=== PATIENT | male | born 1950 | race Caucasian/White ===

== ENCOUNTER 2019-12-01 22:22 | Inpatient (IN) | payer MEDICARE, OTHER ==
[~2019-12-01 22:22] MED LIST: Magnesium 5 GM/10 ML Abboject SYRINGE ONE
[2019-12-01 23:05] LABS: #Basophils 0.1 thou/uL (0.0-0.2); #Eosinphils 0.1 thou/uL (0.0-0.7); #Monocytes 0.6 thou/uL (0.11-0.59); #Neutrophils 4.8 thou/uL (1.40-6.50); %Basophils 0.8 % (0.0-1.0); %Eosinophils 0.8 % (0.0-10.0); %Monocytes 7.6 % (0.0-10.0); %Neutrophils 63.8 % (42.0-75.0); Hemoglobin 13.5 g/dL (14.0-18.0); Mean Corpuscular HGB CONC 33.3 g/dL (32.0-36.0); Mean Corpuscular Hemoglobin 31.1 pg (27.0-31.0); Mean Corpuscular Volume 93.5 fL (78.0-98.0); Mean Platelet Volume 8.5 fL (7.4-10.4); Platelet Count 178 thou/uL (130-400); RBC Distribution Width 13.3 % (11.5-14.5); Red Blood Cell (RBC) Count 4.33 mill/uL (4.70-6.10); White Blood Cell (WBC) Count 7.6 thou/uL (4.8-10.8)
[2019-12-01 23:26] LABS: ALT (SGPT) 16 U/L (8-55); AST (SGOT) 21 U/L (5-34); Albumin 4.3 g/dL (3.4-4.8); Alkaline Phosphatase 48 U/L (40-110); Anion Gap 15 mmol/L (10-20); BUN (Urea Nitrogen) 58 mg/dL (8.4-25.7); Bilirubin, Total 0.6 mg/dL (0.2-1.2); Calc. Creatinine Clearance 0 mL/min (70-130); Calcium 9.2 mg/dL (7.8-10.44); Carbon Dioxide 22 mmol/L (23-31); Chloride 101 mmol/L (98-107); Estimated GFR-MDRD 48; Globulin 2.9 g/dL (2.4-3.5); Glucose 119 mg/dL (80-115); Potassium 3.8 mmol/L (3.5-5.1); Protein, Total 7.2 g/dL (5.8-8.1); Sodium 134 mmol/L (136-145)
[2019-12-01 23:49] LABS: CKMB 6.3 ng/mL (0-6.6)
[2019-12-01] MEDS ORDERED: Aspirin 325 MG TAB ONE (23:53)
--- NOTE | 2019-12-02 00:26 | RAD ---
RADIOGRAPH CHEST 1 VIEW: DATE: 12/01/2019 10:39 PM HISTORY: 68-year-old male with chest pain FINDINGS: The thoracic aorta is tortuous and ectatic. There is no evidence of airspace density, cardiomegaly, p ulmonary edema, or pneumothorax. The lateral costophrenic angles are not effaced. IMPRESSION: 1) No acute cardiopulmonary findings. 2) ectasia of thoracic aorta.
--- NOTE | 2019-12-02 00:44 | PDOC.EVN ---
Event Note - Event Note Event Note: [id number] dictated
[2019-12-02 01:20] LABS: Troponin I 0.034 ng/mL (< 0.028)
[2019-12-02 01:54] VITALS: BMI 25.9
[2019-12-02] MEDS ORDERED: Enoxaparin Sodium 100 MG/ML SYRINGE SC SCH (02:00)
--- NOTE | 2019-12-02 02:27 | HP ---
CHIEF COMPLAINT: Chest tightness and shortness of breath. HISTORY OF PRESENT ILLNESS: Mr. Hernandez is a 68-year-old male with past medical history of coronary artery disease with cardiac stents, aortic aneurysm, hypertension, peripheral vascular disease, among others, presents to the emergency room with sudden onset of chest tightness that started while walking in a store today. He said that he felt tightness in his chest, associated with shortness of breath. Denies fever, cough, syncope, or dizziness. In the emergency room, the patient was chest pain free. Initial troponin is indeterminate at 0.053. Given his risk factors and prior cardiac history, the patient is being admitted to hospital for further management. PAST MEDICAL HISTORY: 1. Abdominal aortic aneurysm, stent in 2017. 2. Coronary artery disease with cardiac stent. 3. Ruptured colon polyps, sepsis. 4. Hypertension. 5. Peripheral vascular disease. PAST SURGICAL HISTORY: 1. Cardiac stents. 2. Abdominal aortic aneurysm surgery. 3. Colon polyps. 4. Left foot partial amputation. 5. Right wrist surgery. SOCIAL HISTORY: He is a former smoker. Denies alcohol drinking. FAMILY HISTORY: Reviewed and noncontributory. HOME MEDICATIONS: Please see home medication reconciliation form for updated medications. ALLERGIES: ALLERGIC TO LISINOPRIL, ZETIA, THIMEROSAL. REVIEW OF SYSTEMS: Review of 14 systems negative except what is mentioned in history of present illness. PHYSICAL EXAMINATION: GENERAL: The patient is awake, alert, does not appear to be in acute distress. VITAL SIGNS: Blood pressure 114/69, pulse is 84, respiratory rate is 16, oxygen saturation 96% in room air, temperature 98.7. HEAD AND NECK: Normocephalic and atraumatic. NECK: Supple. No JVD. CHEST: Fair bilateral air entry. HEART: S1, S2. Regular. ABDOMEN: Soft, nontender. Bowel sounds present. NEUROLOGIC: Awake, alert, oriented x3. PSYCH: Normal mood. EXTREMITIES: No clubbing, no cyanosis. Left midfoot amputation. GENITOURINARY: No suprapubic tenderness. No flank tenderness. LABORATORY DATA: Troponin 0.053. Sodium 134, potassium is 5.8, creatinine 1.4. WBC 7.6, hemoglobin 13.5, platelets 178. ASSESSMENT: 1. Acute chest pain, rule out acute coronary syndrome. 2. Elevated/indeterminate troponin? acute coronary syndrome. 3. History of coronary artery disease with stents. 4. Abdominal aortic aneurysm with history of surgery/stents. 5. Peripheral vascular disease. 6. Hypertension. 7. Hyperlipidemia. PLAN: 1. Admit. 2. Telemonitor. 3. Aspirin. 4. We will give the patient one dose of Lovenox, reassess in a.m. 5. Serial troponins. 6. Keep the patient n.p.o. for now and reassess in a.m. 7. Consult Cardiology in a.m. for evaluation and further recommendations. 8. Reconcile home medications. 9. DVT prophylaxis as appropriate. 10. Expected length of stay at least 1 midnight if patient is stable and further workup negative. Job ID: [id number]
[2019-12-02] MEDS ORDERED: Sodium Chloride 0.9% (PF) 10 ML VIAL FS PRN (05:13)
--- NOTE | 2019-12-02 05:13 | PDOC.EVN ---
Event Note - Event Note Event Note: RN called, patient has black stool. hold lovenox and aspirin check CBC start IV pantoprazole, IVFs
[2019-12-02] MEDS ORDERED: Pantoprazole 40 MG VIAL IVP SCH (05:15)
[2019-12-02 05:34] LABS: Troponin I 0.039 ng/mL (< 0.028)
--- NOTE | 2019-12-02 05:41 | PRG ---
DATE OF SERVICE: 12/02/2019 Received a call from RN. The patient mentioned that he is passing black/dark stool. Denies abdominal pain. We will hold Lovenox and aspirin. We will get a stat CBC. Start the patient on IV proton pump inhibitor. Consult storehouse clerk. Job ID: [id number]
[2019-12-02] MEDS: Sodium Chloride 0.9% 1,000 ML IV SCH ×2 (05:42→16:48)
[2019-12-02] MEDS: Pantoprazole 80 MG in Sodium Chloride 0.9% 100 ML IVPB SCH (05:56)
[2019-12-02 05:58] LABS: #Basophils 0.1 thou/uL (0.0-0.2); #Lymphocytes 2.1 thou/uL (1.20-3.40); #Monocytes 0.6 thou/uL (0.11-0.59); #Neutrophils 4.8 thou/uL (1.40-6.50); %Basophils 0.8 % (0.0-1.0); %Eosinophils 0.4 % (0.0-10.0); %Lymphocytes 27.4 % (21.0-51.0); %Monocytes 8.3 % (0.0-10.0); %Neutrophils 63.2 % (42.0-75.0); Hemoglobin 10.6 g/dL (14.0-18.0); Mean Corpuscular HGB CONC 32.8 g/dL (32.0-36.0); Mean Corpuscular Hemoglobin 30.7 pg (27.0-31.0); Mean Corpuscular Volume 93.5 fL (78.0-98.0); Mean Platelet Volume 8.8 fL (7.4-10.4); Platelet Count 175 thou/uL (130-400); RBC Distribution Width 13.5 % (11.5-14.5); Red Blood Cell (RBC) Count 3.47 mill/uL (4.70-6.10); White Blood Cell (WBC) Count 7.5 thou/uL (4.8-10.8)
[2019-12-02] MEDS ORDERED: Aspirin 325 mg Enteric Coated Tablet PO SCH (09:00)
--- NOTE | 2019-12-02 09:27 | PDOC.BPN ---
- Brief Progress Note I was notified by the nursing staff that the patient had a large bloody bowel movement and subsequently hypotensive with systolic blood pressure less than 70. Upon my assessment, the patient was in Trendelenburg position, alert and oriented, and complaining of dry mouth and thirst. The patient stated that he has been experiencing black stools over the past 2 weeks and was taking Aleve for shoulder pain. The patient does have history of peptic ulcer disease. He received a dose of therapeutic Lovenox in the ER for suspected ACS. This has likely triggered an active episode of bleeding. The patient's blood pressure improved after stopping a bolus of IV fluids. I have discussed the case with Dr. David Cavazos who intends to scope the patient today to identify source of bleeding. Continue IV Protonix drip.
[2019-12-02] MEDS ORDERED: Sodium Chloride 0.9% 1,000 ML IV SCH (09:30)
--- NOTE | 2019-12-02 13:05 | CON ---
DATE OF CONSULTATION: REASON FOR CONSULTATION: Atypical chest pain. HISTORY OF PRESENT ILLNESS: Mr. Hernandez is a 68-year-old gentleman with extensive cardiac history, who has not been seen or evaluated by Cardiology in almost 10 years. He states he has had stents placed at [facility] in [place] in 2010. He also states he had an aortic aneurysm repair in 2017. He re-presented with shortness of breath and atypical chest pain. No nausea, vomiting, or other associated symptoms. He has had black dark tarry stools. He also had a sharp drop in his hemoglobin from 13 to 10 with a melena present. He did have a short run of nonsustained VT noted on the monitor. He is currently asymptomatic. PAST MEDICAL HISTORY: As described above including hypertension, previous ruptured colon polyp and sepsis requiring a prolonged hospitalization, abdominal aneurysm repair in 2017, partial left foot amputation, wrist surgery. SOCIAL HISTORY: Previous tobacco use. No current alcohol use. HOME MEDICATIONS: Include; 1. Tadalafil. 2. Gemfibrozil. 3. Aspirin. 4. Thyroid. 5. Sertraline. 6. Metoprolol. 7. Lasix. REVIEW OF SYSTEMS: A 10-point review of systems is reviewed as above, otherwise negative. PHYSICAL EXAMINATION: GENERAL: Patient is a pleasant male, who is in no acute distress. The patient appears their stated age. VITAL SIGNS: Blood pressure 105/65, pulse 82, respirations 20. NEUROLOGIC: The patient is alert and oriented x3 with no focal neurologic deficits. HEENT: Sclerae without icterus. Mouth has moist mucous membranes with normal pallor. NECK: No JVD. Carotid upstroke brisk. No bruits bilaterally. LUNGS: Clear to auscultation with unlabored respirations. BACK: No scoliosis or kyphosis. CARDIAC: Regular rate and rhythm with normal S1 and S2. No S3 or S4 noted. No significant rubs, murmurs, thrills, or gallops noted throughout the precordium. PMI is not displaced. There is no parasternal heave. ABDOMEN: Soft, nontender, nondistended. No peritoneal signs present. No hepatosplenomegaly. No abnormal striae. EXTREMITIES: 2+ femoral and 2+ dorsalis pedis pulses. No cyanosis, clubbing, or edema. SKIN: No gross abnormalities. PERTINENT LABORATORY DATA: As above. Creatinine 1.48 with a GFR of 48. Peak troponin 0.053. IMPRESSION: 1. Atypical chest pain. 2. Shortness of breath. 3. Gastrointestinal bleed. 4. Peripheral vascular disease. 5. Coronary artery disease. 6. Status post stent placement. RECOMMENDATIONS: CV status appears stable. His troponin is not felt to be elevated, consistent with a non-Q-wave NH. If anything, he has had demand ischemia. Thus, we will continue close observation. Avoid anticoagulation therapy or anti-platelet therapy, given recent GI bleed. We will check a magnesium level due to short run of nonsustained VT. If LVEF is normal, continue beta-ghassan therapy. Job ID: [id number]
[2019-12-02 13:50] LABS: Hemoglobin 9.7 g/dL (14.0-18.0)
--- NOTE | 2019-12-02 14:52 | CON ---
DATE OF CONSULTATION: 12/02/2019 REQUESTING PHYSICIAN: Dr. Randall. REASON FOR CONSULTATION: GI bleeding. HISTORY OF PRESENT ILLNESS: Kenny Hernandez is a 68-year-old man, who was admitted to the hospital overnight. He had the acute onset of chest pain and tightness as well as shortness of breath yesterday. He was admitted to rule out acute coronary syndrome. He was given a dose of therapeutic Lovenox as well as 325 mg of aspirin. Overnight, he developed melena with a couple of large black bowel movements, then also with a reddish coloration to the stool. This morning, his blood pressures dropped into the 60s systolic briefly. He has been started on an IV PPI drip and is being transferred to the intensive care unit. He does not have any presyncope or dizziness. No fever. He has no abdominal pain or nausea. He endorses no chronic gastrointestinal symptoms, but on questioning, states that for perhaps the past couple of weeks he has had intermittently dark stools, intermittently normal-appearing brown stools. He is not on any acid suppression. He does take Aleve occasionally for shoulder pain. He reports a prior history of peptic ulcer disease probably 10 years ago for which he was on acid suppression for a while, was taken off several years ago. Interestingly, he also reports a prior history of "colon polyp rupture and sepsis" back in 2017. He evidently was quite ill and had to undergo colon surgery with colostomy bag, which was subsequently reversed. This was all done at [facility]. He really cannot give me any more details about what caused that presentation, all he can remember is that it was "ruptured colon polyps." REVIEW OF SYSTEMS: Full review of systems including constitutional, head, eyes, ears, nose, throat, GI, , cardiovascular, respiratory, musculoskeletal, neurologic systems is negative except as noted in the HPI. PAST MEDICAL HISTORY: Peptic ulcer disease, 10 years ago. Abdominal aortic aneurysm with stent placed in 2017, coronary artery disease with stent placed, renal artery stenosis with stent placed, hypertension, peripheral vascular disease, colon polyps, left partial foot amputation, colon surgery for unknown reasons with colostomy 2017, subsequently reversed. ALLERGIES: LISINOPRIL, ZETIA, THIMEROSAL. MEDICATIONS: Outpatient medications: 1. Aspirin 81 mg daily. 2. Zoloft. 3. Metoprolol. 4. Lasix. 5. Tadalafil. 6. Gemfibrozil. 7. [place] Thyroid. Inpatient medications: Protonix IV drip started this morning. SOCIAL HISTORY: He is a former smoker. No alcohol abuse. FAMILY HISTORY: Noncontributory. PHYSICAL EXAMINATION: VITAL SIGNS: Temperature 97.8, pulse 83, blood pressure 106/58, 99% oxygen saturation on room air. GENERAL: A 68-year-old man, lying in bed comfortably, in no distress. SKIN: No jaundice, no rashes were palpable. EYES: No scleral icterus. Extraocular movements intact. ENT: Mucous membranes moist. No oral lesions. LYMPH: No submandibular or supraclavicular lymphadenopathy. THYROID: Nontender to palpation. HEART: Regular rate and rhythm. LUNGS: Clear to auscultation bilaterally. ABDOMEN: Bowel sounds present. The abdomen is flat, soft and nontender to palpation. He has a vertical midline scar as well as a left-sided colostomy scar which are well healed. EXTREMITIES: No peripheral edema. VESSELS: Radial pulses 2+ bilaterally NEUROLOGIC: Cranial nerves 2 through 12 intact bilaterally. No focal deficits. LABORATORY DATA: Hemoglobin initially 13.5, declined rapidly to 10.6 this morning. WBC 7.5, platelets 175. Sodium 134, potassium 3.8, BUN 58, creatinine 1.48. Troponin 0.039, CK-MB only 6.3. LFTs all normal with total bilirubin 0.6, alkaline phosphatase 48, AST 21, ALT 16, albumin 4.3. IMAGING STUDIES: Chest x-ray showed ectasia of the thoracic aorta, but no acute processes. ASSESSMENT AND PLAN: 1. Melena, intermittent over the past couple of weeks, with worsening last night after dose of Lovenox. 2. Acute blood loss anemia, significant decline from 13.5 to 10.6 overnight. 3. Remote history of peptic ulcer disease. Of note, the patient does take Aleve occasionally and is not on any acid suppression. 4. History of colon surgery for unclear reasons in 2017. We will need to request records from [facility] to try to get the details on this. 5. The patient has been started on IV PPI and being moved to the ICU appropriately. Continue with resuscitation and supportive measures as you are doing. Trend H and H closely. Transfuse as needed. We are going to plan for diagnostic EGD today. I discussed with the patient and his that depending on findings, we may perform therapeutic interventions. If the EGD is normal or unrevealing, we would need to consider bowel preparation tonight for colonoscopy tomorrow. The patient understands and agrees with the plan. Thank you for the consultation. Please call anytime with questions or concerns. Job ID: [id number]
[2019-12-02] MEDS ORDERED: Calcium Chloride 1 GM/10 ML Abboject SYRINGE ONE (15:21)
[2019-12-02] MEDS ORDERED: Succinylcholine Chloride 20 MG/ML 10 ml SYRINGE FS ONE (15:21)
[2019-12-02] MEDS ORDERED: PROPOFOL 200 MG/20 ML VIAL ONE (15:21)
[2019-12-02] MEDS ORDERED: Lidocaine 1% PF 5 ML VIAL ONE (15:21)
[2019-12-02] MEDS ORDERED: GoLYTELY 4,000 ml Bottle PO SCH (16:53)
[2019-12-02] MEDS ORDERED: Cepastat Lozenges 1 LOZ PO PRN (20:33)
--- NOTE | 2019-12-02 20:38 | OP ---
DATE OF PROCEDURE: 12/02/2019 COMMUNICATIONS DESIGNER SURGEON: None. PROCEDURE PERFORMED: Esophagogastroduodenoscopy, diagnostic. INDICATIONS: 1. Melena. 2. Acute blood loss anemia. 3. Reported prior history of peptic ulcer disease. MEDICATIONS: See Anesthesia record. FINDINGS: After discussion of the risks, benefits, and alternatives of the procedure, informed consent was obtained and witnessed. Pre-endoscopic cardiopulmonary examination was satisfactory. Time-out was performed before sedation was achieved. Sedation was achieved with Anesthesia assistance in the endoscopy unit. A Pentax adult upper endoscope was placed into the oropharynx and passed through the cricopharyngeus under direct visualization. The esophageal mucosa appeared normal throughout with a normal-appearing Z-line. The endoscope was advanced into the stomach. Forward and retroflexed views of the entire gastric mucosa were obtained. There is some patchy mild erythema and mild friability within the gastric fundus and body, but there were no erosions or ulcerations. There was no old blood or active bleeding in the stomach. No bleeding lesion identified. The endoscope was passed through the pylorus and into the first and second portions of the duodenum and then passed further into the third and fourth portions of the duodenum. The duodenum mucosa appeared normal. The upper endoscope was completely withdrawn and the patient allowed to recover. The patient tolerated the procedure well. There were no immediate postprocedure complications. IMPRESSION: 1. Mild patchy nonerosive gastritis. 2. No old blood or active bleeding, no bleeding lesion identified, nothing to explain the patient's bleeding presentation. 3. Otherwise normal esophagogastroduodenoscopy to the fourth portion of the duodenum. RECOMMENDATION: 1. Transfuse 1 unit of packed red blood cells now. 2. Continue to trend H and H, follow closely. 3. Plan for diagnostic colonoscopy tomorrow, after bowel preparation this evening. Job ID: [id number]
[2019-12-02] MEDS: HYDROcodone/Acetaminophen 5/325 mg Tablet PO PRN (22:18)
[2019-12-03] MEDS ORDERED: Morphine 2 MG/ML SYRINGE SLOW IVP SCH (00:15)
[2019-12-03] MEDS: HYDROcodone/Acetaminophen 5/325 mg Tablet PO PRN (02:26)
[2019-12-03] MEDS: Pantoprazole 80 MG in Sodium Chloride 0.9% 100 ML IVPB SCH ×3 (02:27→21:47)
[2019-12-03] MEDS: Sodium Chloride 0.9% 1,000 ML IV SCH (02:28)
[2019-12-03 05:12] LABS: #Basophils 0.1 thou/uL (0.0-0.2); #Lymphocytes 5.3 thou/uL (1.20-3.40); #Monocytes 1.2 thou/uL (0.11-0.59); #Neutrophils 10.1 thou/uL (1.40-6.50); %Basophils 0.4 % (0.0-1.0); %Eosinophils 0.1 % (0.0-10.0); %Monocytes 7.1 % (0.0-10.0); %Neutrophils 60.4 % (42.0-75.0); Hemoglobin 7.2 g/dL (14.0-18.0); Mean Corpuscular HGB CONC 32.1 g/dL (32.0-36.0); Mean Corpuscular Hemoglobin 30.3 pg (27.0-31.0); Mean Corpuscular Volume 94.2 fL (78.0-98.0); Platelet Count 172 thou/uL (130-400); RBC Distribution Width 13.6 % (11.5-14.5); Red Blood Cell (RBC) Count 2.37 mill/uL (4.70-6.10); White Blood Cell (WBC) Count 16.7 thou/uL (4.8-10.8)
--- NOTE | 2019-12-03 05:19 | PDOC.BPN ---
- Brief Progress Note Code blue called. Prior to my arrival patient had just had a bloody bowel movement. He subsequently arrested and was noted to have TdP. He was defibrillated and given 1 dose of epi and subsequently regained consciousness/pulse. When I arrived he was breathing spontaneously, satting 100%, with reassuring BP p epi and HR in the 180s. The patient was diaphoretic and complained of chest pain. 2g Mg was given. Anesthesia arrived and subsequently left since a requirement for intubation at the time did not seem necessary. An ECG was obtained and revealed a HR of [address] depression and indeterminate presence of T waves, QTC>500. A CBC, CMP, mg/phos/Tn were sent. I discussed with Dr. Vega who agrees that a blood transfusion reaction was unlikely and the patient is likely hypovolemic. Restart PRBCs, bolus PRN. TdP in setting of hemorrhagic+/-shock 2/2 GI bleed with ? new NSTEMI with STD. I handed off to Dr. Vega in this non-PUI/COVID patient. Any notification of specialists per primary.
[2019-12-03 05:28] LABS: ALT (SGPT) 14 U/L (8-55); AST (SGOT) 21 U/L (5-34); Albumin 3.5 g/dL (3.4-4.8); Alkaline Phosphatase 35 U/L (40-110); Anion Gap 16 mmol/L (10-20); BUN (Urea Nitrogen) 48 mg/dL (8.4-25.7); Bilirubin, Total 0.3 mg/dL (0.2-1.2); Calc. Creatinine Clearance 61 mL/min (70-130); Calcium 7.9 mg/dL (7.8-10.44); Carbon Dioxide 17 mmol/L (23-31); Chloride 108 mmol/L (98-107); Estimated GFR-MDRD 45; Glucose 191 mg/dL (80-115); Magnesium 2.4 mg/dL (1.6-2.6); Protein, Total 5.5 g/dL (5.8-8.1); Sodium 138 mmol/L (136-145)
[2019-12-03 05:30] LABS: Potassium 2.6 mmol/L (3.5-5.1)
[2019-12-03] MEDS: Potassium Chloride 40 MEQ in Sodium Chloride 0.9% 250 ML 250 ML IVPB SCH ×2 (05:45→09:58)
[2019-12-03] MEDS ORDERED: Morphine 2 MG/ML SYRINGE SLOW IVP PRN (05:57)
[2019-12-03 06:10] LABS: CKMB 9.2 ng/mL (0-6.6)
--- NOTE | 2019-12-03 07:34 | PDOC.HOSPP ---
- Subjective Encounter Date: 12/03/19 Encounter Time: 07:30 Subjective: The patient continued to have excessive amounts of dark stools overnight after initiating the bowel prep. His hemoglobin decreased from 13 on admission progressively to 7.3. A code was called overnight and the patient was successfully resuscitated. The rhythm was reportedly ventricular arrhythmia. This morning the patient is alert and oriented and complaining of chest soreness at the site of the chest compressions. - Objective Vital Signs & Weight: Vital Signs (12 hours) Temp Pulse Resp Pulse Ox 12/03/19 06:45 97.9 F 115 H 12 100 12/03/19 05:06 100 12/03/19 05:00 97.8 F 100 12/03/19 04:29 99.5 F 12/03/19 04:13 98.5 F 12/03/19 03:42 97.8 F 12/02/19 23:35 99.2 F Weight Weight 207 lb 14.334 oz Most Recent Monitor Data Heart Rate from ECG 116 NIBP 130/77 NIBP BP-Mean 97 Respiration from ECG 10 SpO2 100 I&O: 12/02/19 12/03/19 12/04/19 06:59 06:59 06:59 Intake Total 6538.9 Output Total 2900 Balance 3638.9 Result Diagrams: 12/03/19 04:58 12/03/19 04:58 Hospitalist ROS - Medication Medications: Active Medications Generic Name Dose Route Start Last Admin Trade Name Freq PRN Reason Stop Dose Admin Hydrocodone Bitart/Acetaminophen 1 tab 12/02/19 21:57 12/03/19 02:26 [place] 5/325 PO 1 tab Q4H PRN Administration Moderate Pain (4-6) Sodium Chloride 1,000 mls @ 75 mls/hr 12/02/19 05:15 12/03/19 02:28 Normal Saline 0.9% IV 1,000 mls .[id number] NAZANIN Administration Pantoprazole Sodium 80 mg/ 100 mls @ 10 mls/hr 12/02/19 06:00 12/03/19 02:27 Sodium Chloride IVPB 100 mls INF NAZANIN Administration Potassium Chloride 40 meq/ 270 mls @ 67.5 mls/hr 12/03/19 06:00 12/03/19 05: 45 Sodium Chloride IVPB 12/03/19 13:59 270 mls Q4H NAZANIN Administration Morphine Sulfate 2 mg 12/03/19 05:57 12/03/19 06:02 Morphine SLOW IVP 2 mg Q8H PRN Administration Pain Sodium Chloride 10 ml 12/02/19 05:04 12/02/19 05:45 Flush - Normal Saline IVF 10 ml PRN PRN Administration Saline Flush Throat Lozenges 1 paco 12/02/19 20:33 12/02/19 21:14 Cepastat Lozenges PO 1 paco Q2H PRN Administration Sore Throat - Exam General Appearance: awake alert, ill appearing ENT: normocephalic atraumatic Neck: supple Heart - other findings: Regular tachycardia Respiratory: CTAB, normal chest expansion, no tachypnea Gastrointestinal: soft, non-tender, non-distended, normal bowel sounds Neurological: cranial nerve grossly intact Hosp A/P (1) Anemia due to acute blood loss Code(s): D62 - ACUTE POSTHEMORRHAGIC ANEMIA Status: Acute (2) Gastrointestinal bleeding Code(s): K92.2 - GASTROINTESTINAL HEMORRHAGE, UNSPECIFIED Status: Acute (3) Hypokalemia Code(s): E87.6 - HYPOKALEMIA Status: Acute (4) Cardiac arrest Code(s): I46.9 - CARDIAC ARREST, CAUSE UNSPECIFIED Status: Acute (5) Demand ischemia Code(s): I24.8 - OTHER FORMS OF ACUTE ISCHEMIC HEART DISEASE Status: Acute (6) GRACE (acute kidney injury) Code(s): N17.9 - ACUTE KIDNEY FAILURE, UNSPECIFIED Status: Acute - Plan Patient is currently being managed in the CCU. He is receiving the second out of 3 packed RBCs. His rhythm was reportedly torsade de poin during the code and he responded to defibrillation. EGD yesterday did not reveal any source of bleeding. Due to the active nature of the bleeding, I will order a stat bleeding scan. He is also scheduled for colonoscopy today. Replace potassium. Creatinine level slightly trending up which is likely due to shock related to bleeding and cardiac arrest. GI and cardiology on board. 40 min of critical care time was used to evaluate and manage this patient.
[2019-12-03 07:40] LABS: INR-International Normal Ratio 1.3; Prothrombin Time 15.9 sec (12.0-14.7)
[2019-12-03] MEDS ORDERED: Iopamidol 370 76% 100 ML VIAL ONE (09:22)
[2019-12-03] MEDS: Gabapentin 400 MG CAP PO SCH ×4 (09:34→21:47)
[2019-12-03] MEDS: Morphine 2 MG/ML SYRINGE SLOW IVP PRN (09:38)
--- NOTE | 2019-12-03 10:42 | PRG ---
DATE OF SERVICE: SUBJECTIVE: Mr. Hernandez completed his bowel preparation yesterday evening. Reports that the stools actually seemed to clear up blood with bowel preparation. However, this morning, he had an acute cardiac event, went into torsades, actually received epinephrine and one defibrillation shock as well as chest compressions. He did not have to be intubated. He quickly regained consciousness. He is now in sinus tachycardia. He has not had any further bowel movements or stool output today. Blood pressure is stable. His only complaint right now is fatigue and pain in the chest. Hemoglobin did decline dramatically from 9.7 yesterday to 7.2 this morning. He is receiving 2 more units of RBCs. He was also found to be hypokalemic with potassium down to 2.6, so he is receiving IV potassium replacement. OBJECTIVE: VITAL SIGNS: Temperature 98.0, pulse 112, blood pressure 109/63, 96% oxygen saturation on 2 L nasal cannula. GENERAL: In no acute distress. HEART: Regular, tachycardia. LUNGS: Clear to auscultation bilaterally. ABDOMEN: Bowel sounds present. Soft and nontender. EXTREMITIES: No peripheral edema. LABORATORY STUDIES: Hemoglobin down to 7.2, this is down from 9.7 yesterday, down from 13.5 on admission; WBC is up to 16.7; platelets 172. INR 1.3. Sodium 138, potassium 2.6, BUN 48, creatinine 1.56, and glucose 191. LFTs all remained normal with total bilirubin of 0.3, alkaline phosphatase of 35, AST of 21, and ALT of 14. CK-MB is up to 9.2. Troponin went up to 0.607. ASSESSMENT/PLAN: 1. Acute gastrointestinal bleeding, suspect lower gastrointestinal source given essentially negative EGD performed yesterday. 2. Acute blood loss anemia, severe. He is now receiving unit 3 of RBC transfusion today. Continue to trend H and H closely and transfuse as needed. He has actually not had much overt bloody stool output yet this morning. I have spoken with Dr. Berry as well as Dr. Randall. The patient is considered very high risk for any endoscopic procedure today given his recent code. Potassium is being replaced. It has been recommended that we not proceed with any endoscopic procedure today and I am in agreement. Continue to monitor today. We will go ahead and get a nuclear medicine tagged RBC scan in lieu of colonoscopy. The patient can have a clear liquid diet from my perspective. Please have him n.p.o. after midnight, and if okay from a cardiac perspective tomorrow morning, could potentially perform colonoscopy tomorrow. Please call anytime with questions or concerns or updates in his clinical status. Job ID: [id number]
[2019-12-03] MEDS: Morphine 4 MG/ML VIAL SLOW IVP PRN ×6 (11:29→23:41)
[2019-12-03] MEDS: fentaNYL 75 mcg/hour Patch TD SCH (11:33)
--- NOTE | 2019-12-03 12:33 | CON ---
DATE OF CONSULTATION: Total critical care time 35 minutes. Mr. Hernandez this morning had a code blue called. He developed torsade de pointes. He was cardioverted multiple occasions. He has not required intubation. He has now stabilized. His initial potassium was 2.6. Previous potassium was 3.8 on 12/01/2019. His creatinine is slightly elevated 1.56 with a GFR 45. His magnesium level is also 2.4. Currently, he is complaining of chest pain from a recent CPR. Otherwise, he appears stable. His hemoglobin also decreased from initially of 13.5 on 12/01/19 to 7.2 on 12/02. He has already received 2 units of packed red blood cells. PHYSICAL EXAMINATION: CURRENT VITAL SIGNS: Blood pressure 119/68, pulse 110, respirations 20. LUNGS: Clear to auscultation. HEART: Regular rate and rhythm. ABDOMEN: Soft, nontender, nondistended. EXTREMITIES: No edema. PERTINENT LABORATORY DATA: As described above. Initial troponin 0.6, up from 0.039. IMPRESSION: 1. Torsade de pointes. 2. Coronary artery disease. 3. Gastrointestinal bleed. RECOMMENDATIONS: Certainly very difficult managing situation for Mr. Hernandez. I reviewed his medications. There does not appear to be inciting medication that would cause torsades. He has not been bradycardic and would not be secondary to bradycardia. Etiology would be hypokalemia versus ischemia. At this point, he has been given 40 mg of potassium. He will get another 40 mg of potassium. We would like to keep his potassium level above 4.0. We will also give him another dose of magnesium 1 g IV. From an ischemic standpoint, could certainly proceed with coronary angiography, but at this point would not feel comfortable with treatment given the significant drop in hemoglobin despite 2 units of packed red blood cells. Also discussed the case with Dr. David Cavazos. We have decided to help stabilize Mr. Hernandez at this point and not proceed with colonoscopy. If colonoscopy is needed , would recommend waiting 24 hours for stabilization. Again, could consider proceeding with coronary angiography only, but could not proceed with stent implantation or even bypass surgery given not knowing the source of GI bleeding. Angiography with stent placement would require aspirin, Plavix in addition to heparin versus Lovenox versus Angiomax. I did discuss this with both the patient and his . They understand the circumstances. I did spend 35 minutes of critical care time at Mr. Hernandez's bedside. We will continue to monitor closely. ADDENDUM 12/03/2019 1635: Pt with sternal pain only. moderate pain to touch to right side of chest only. No anginal pain present. Troponin of 16. CKMB pending and EKG stable without EKG changes suggesting ischemia Difficult situation given likely pt bleeding and unknown if hew has stopped. Cannot proceed with anti-coagulation therapy given 3 unit bleed. Unsure if uincrease troponin from demand ischemia from recent event (ischemic driven or from low K). K level has stabilized. At this point, pt appears stable. EKG also stable without acute changes or ischemia changes present as he had during the code. REC: Increase BB and add amiodarone for rhythm stabilization. Given no angina and normal EKG, recommend observation for now. If recurrent VT, consider angio but intervention may not be feasible given bleeding event and need for heparin, ASA and plavix. Discussed at length with pt and earlier and with pt this afternoon. 12/03/[address] Cavazos, it appears the best course of action iis to proceed with angio. Unknown if torsades from acute ishcemia event or hypokalemia but given troponinand inability to proceed with coloscopy in am because of trop, will proceed to assess for ischemia. R/B of angio discussed with pt, and son seperately. Risks included not limited to: , stroke, MN, bleeding (main concern) requiring further transfusions. Will proceed with BMS if needed and use angiomax for ACT given the short half life. I am concerned about not being able to use ACT overnight and recurrent TP. Pt with intermittent VT noted through the day. Job ID: [id number] [facility]
[2019-12-03 12:41] VITALS: BP 108/66
[2019-12-03 13:26] LABS: Hemoglobin 10.7 g/dL (14.0-18.0)
--- NOTE | 2019-12-03 15:36 | CON ---
DATE OF CONSULTATION: 12/03/2019 HISTORY OF PRESENT ILLNESS: Kenny Hernandez is a 68-year-old male who had torsades. He actually presented with shortness of breath and chest discomfort. He subsequently was found to have a GI bleed. He had torsades and CPR earlier in the day. His only complaint is sternal pain from his CPR. PAST MEDICAL HISTORY: Remarkable for: 1. Hypertension. 2. History of colon polyp and clinical sepsis in the past. 3. History of abdominal aortic aneurysm repair 3 years ago. 4. History of partial left foot amputation. 5. History of wrist surgery. SOCIAL HISTORY: He is a previous smoker and nondrinker. MEDICATIONS: Has been reviewed. REVIEW OF SYSTEMS: Otherwise negative. PHYSICAL EXAMINATION: GENERAL: He is in sinus rhythm. Heart rate was 100, blood pressure was 98/65, respiratory rate is in the 20s. HEAD AND NECK: Unremarkable. LUNGS: Clear. HEART: Regular rhythm. S1 and S2 are normal. ABDOMEN: Soft and nontender. EXTREMITIES: Without clubbing, cyanosis, or edema. LABORATORY DATA: Hemoglobin was 7.2 this morning and has been transfused up to 10.7 and white count 16.7. His potassium was low this morning at 2.6, potassium is being replaced. IMPRESSION: 1. Torsades. 2. History of coronary artery disease. 3. Sternal pain secondary to cardiopulmonary resuscitation. I have added a fentanyl patch and morphine. 4. Gastrointestinal blood loss, being followed by Gastroenterology. Endoscopy is on hold. I see no reason at this point in time to send him down for bleeding scan. He would be down in nuclear medicine away from the ICU staff for a prolonged period of time, and given his events, I do not feel the risk is currently worth it. If he begins briskly bleeding, we can proceed more aggressively with airway support, endoscopy, etc., but at this point in time, we will proceed with supportive care until he stabilizes. CRITICAL CARE TIME: 30 minutes. Job ID: [id number] [facility]
[2019-12-03 15:51] LABS: Anion Gap 11 mmol/L (10-20); BUN (Urea Nitrogen) 28 mg/dL (8.4-25.7); Calc. Creatinine Clearance 78 mL/min (70-130); Calcium 7.6 mg/dL (7.8-10.44); Carbon Dioxide 22 mmol/L (23-31); Chloride 112 mmol/L (98-107); Estimated GFR-MDRD 58; Glucose 109 mg/dL (80-115); Magnesium 2.1 mg/dL (1.6-2.6); Potassium 4.2 mmol/L (3.5-5.1); Sodium 141 mmol/L (136-145); Troponin I 16.339 ng/mL (< 0.028)
[2019-12-03] MEDS ORDERED: Heparin 10,000 UNITS/1 ML VIAL ONE (17:06)
[2019-12-03] MEDS ORDERED: Nitroglycerin 100MG/250ML BOT 250 ML ONE (17:06)
[2019-12-03] MEDS ORDERED: Verapamil 5 MG/2 ML VIAL ONE (17:06)
[2019-12-03] MEDS ORDERED: Adenosine 6 MG/2 ML VIAL ONE (17:06)
[2019-12-03] MEDS ORDERED: Amiodarone 150 MG/3 ML VIAL ONE (17:35)
[2019-12-03] MEDS ORDERED: Bivalirudin 250 MG VIAL ONE (17:36)
[2019-12-03] MEDS ORDERED: Norepinephrine 4 MG/4 ML VIAL ONE (18:28)
[2019-12-03 19:29] LABS: Hemoglobin 10.4 g/dL (14.0-18.0)
[2019-12-03] MEDS ORDERED: Norepinephrine 8 MG/0.9% NS 250 ML IVPB PRN (20:01)
--- NOTE | 2019-12-03 20:06 | CON ---
DATE OF CONSULTATION: HISTORY OF PRESENT ILLNESS: Mr. Hernandez is a 68-year-old gentleman who was admitted yesterday with GI bleed. He underwent EGD, which was negative. He has had a colon prep and during the night, had torsades. This required CPR and cardioversion. He is back in sinus rhythm. He has been stable throughout the day today. He has had troponin checked, which the most recent is 16.3. This has led to him coming to the label fuser tender for cardiac catheterization. He is currently chest pain-free outside of some soreness from CPR. He has received 3 units of packed red blood cells. His hemoglobin drifted from an admission 13.5 down to 7.2 this morning and after 3 units of cells, he is at 10.7. He has had no further bloody bowel movements or stool output at all. Dr. Cavazos is seeing from and is waiting for clearance to perform a lower endoscopy. The patient has a very long and difficult to follow history from [facility] in [place]. He lives in [place] and has used [facility] in [place] for all of his medical care up until now. He has had an aneurysm endovascularly repaired and has not had any followup from [facility] in [place]. He has had multiple coronary events treated in [place]. He has also had a partial left foot amputation. Currently, he is chest pain-free and being prepped for cardiac catheterization. PAST MEDICAL HISTORY: 1. Peripheral vascular disease. 2. Abdominal aneurysm. 3. Coronary artery disease. 4. Hypertension. PAST SURGICAL HISTORY: 1. Left partial foot amputation. 2. Left wrist surgery. 3. Colon polyp removal. 4. Endovascular abdominal aortic aneurysm repair. SOCIAL HISTORY: He is a previous smoker. Does not use alcohol. MEDICATION: List has been reviewed. ALLERGIES: LISINOPRIL, EZETIMIBE, AND THIMEROSAL. PHYSICAL EXAMINATION: GENERAL: This is a well-developed, well-nourished male, resting comfortably in the bed. VITAL SIGNS: Height 6 feet 2 inches and weight is 207 pounds. BSA is 2.22. LUNGS: Clear bilaterally. HEART: Rhythm is regular. ABDOMEN: Soft and nontender. EXTREMITIES: No edema. He has partial left foot amputation. ASSESSMENT AND PLAN: For coronary angiography. This left to be coordinated around his GI bleed, which will need a lower endoscopy. He will also need followup with his aneurysm and peripheral vascular disease. Job ID: [id number]
[2019-12-03] MEDS ORDERED: Sodium Chloride 0.9% 1,000 ML IV SCH (20:45)
[2019-12-03] MEDS: Amiodarone 450 MG in Dextrose 5% in Water 250 ML IVPB SCH (21:47)
[2019-12-04 00:28] LABS: Hemoglobin 10.7 g/dL (14.0-18.0)
[2019-12-04 04:12] LABS: Band 23 % (5-11); Hemoglobin 10.5 g/dL (14.0-18.0); Lymphocytes 2 % (21-51); MDiff Complete? YES; Mean Corpuscular HGB CONC 33.9 g/dL (32.0-36.0); Mean Corpuscular Hemoglobin 31.9 pg (27.0-31.0); Mean Corpuscular Volume 94.1 fL (78.0-98.0); Mean Platelet Volume 8.8 fL (7.4-10.4); Monocytes 8 % (0-10); Neutrophil 67 % (42-75); Platelet Count 175 thou/uL (130-400); Platelet Morphology Comment Appears Adequate; RBC Distribution Width 13.8 % (11.5-14.5); Red Blood Cell (RBC) Count 3.28 mill/uL (4.70-6.10); White Blood Cell (WBC) Count 24.5 thou/uL (4.8-10.8)
[2019-12-04] MEDS ORDERED: Naloxone HCl 0.4 mg/ml Vial IV PRN ×2 (04:28→06:03)
[2019-12-04] MEDS ORDERED: Naloxone HCl 0.4 mg/ml Vial ONE (04:28)
[2019-12-04 04:29] LABS: ALT (SGPT) 37 U/L (8-55); AST (SGOT) 124 U/L (5-34); Albumin 3.4 g/dL (3.4-4.8); Alkaline Phosphatase 42 U/L (40-110); Anion Gap 12 mmol/L (10-20); BUN (Urea Nitrogen) 31 mg/dL (8.4-25.7); Bilirubin, Total 0.7 mg/dL (0.2-1.2); Calc. Creatinine Clearance 40 mL/min (70-130); Calcium 7.6 mg/dL (7.8-10.44); Carbon Dioxide 23 mmol/L (23-31); Chloride 110 mmol/L (98-107); Estimated GFR-MDRD 27; Globulin 2.4 g/dL (2.4-3.5); Glucose 136 mg/dL (80-115); Potassium 4.3 mmol/L (3.5-5.1); Protein, Total 5.8 g/dL (5.8-8.1); Sodium 141 mmol/L (136-145)
[2019-12-04] MEDS ORDERED: Naloxone HCl 0.4 mg/ml Vial IV SCH (04:30)
[2019-12-04] MEDS: Sodium Chloride 0.9% 1,000 ML IV SCH ×2 (06:11→13:48)
--- NOTE | 2019-12-04 07:07 | CT ---
PRELIMINARY REPORT/[facility]/EMERGENCY AFTER HOURS PROCEDURE: PROCEDURE: CT Head without Contrast . HISTORY: Neurological changes and unresponsive. TECHNIQUE: Axial images were performed without the administration of IV contrast with or without mult iplanar reformations . COMPARISON: None . FINDINGS: The brain shows NO mass, hemorrhage, or acute stroke. Ventricles appear normal size for the patient's age. NO skull or scalp abnormality. Visualized sinuses and mastoids are clear . IMPRESSION: Normal CT scan of the head . ELECTRONICALLY SIGNED BY: Jl García MD Dec 04, 2019 4:22:52 AM CDT This report is intended for review by the ordering physician only, in accordance of law. If you recei ve this report in error, please call [facility] at [phone]. FINAL REPORT EMERGENCY AFTER HOURS CT BRAIN WITHOUT CONTRAST: FINDINGS/IMPRESSION: I agree with the findings and impression given in the preliminary report per [facility] physici an. No evidence of acute intracranial abnormality. POS: [place]
[2019-12-04] MEDS: Gabapentin 400 MG CAP PO SCH ×4 (08:43→22:13)
--- NOTE | 2019-12-04 09:25 | PRG ---
DATE OF SERVICE: 12/04/2019 SUBJECTIVE: Mr. Hernandez is doing much better today. He had an episode of somnolence with difficulty to arouse overnight. He received Narcan. He was on fentanyl. He awoke. He did require more norepinephrine overnight, but has now been titrating down. Unfortunately, his creatinine was also elevated. He has no current complaints this morning. His is at bedside. OBJECTIVE: VITAL SIGNS: Blood pressure 106/69 on 7 mcg of a norepinephrine, heart rate 97, and respirations 20. LUNGS: Clear to auscultation. HEART: Regular rate and rhythm. ABDOMEN: Soft, nontender, nondistended. EXTREMITIES: No edema. PERTINENT LABORATORY DATA: Hemoglobin 10.5, hematocrit 30.8, and white blood cell count 24.5. Creatinine yesterday 1.25, increased to 2.4. IMPRESSION: 1. Non-Q-wave myocardial infarction. 2. Gastrointestinal bleed. 3. Acute on chronic renal insufficiency. 4. Aortic aneurysm status post repair. RECOMMENDATIONS: Unfortunately, Mr. Hernandez's creatinine increased. I used about 90 mL of contrast yesterday, trying to intervene on the left circumflex artery. I explained to the family that based on his recent event occluded circ (of unknown duration) and recent elevated troponin with the patient having chest pain likely from CPR, but could not exclude cardiac ischemia. I felt the need to proceed with coronary angiography. Unfortunately, his creatinine was increased. This is likely due to contrast nephropathy. He has received IV fluids overnight and this morning. We will consult with Nephrology. There was also some difficulty on placement of catheters, not wires into the proximal portion of the descending aorta. There may also been plaque redistribution into the renals which is less likely. We would recommend continue supportive care. Fortunately, his hemoglobin appears stable. He will likely need further GI testing in the next several days to assess GI etiology. He does have a lesion noted to the right coronary artery, but in order to limit contrast and prevent the use of aspirin and Plavix, I decided not to proceed with intervention to the RCA. This may need to be addressed at some point later, but not during this hospitalization. Job ID: [id number]
[2019-12-04] MEDS: Pantoprazole 80 MG in Sodium Chloride 0.9% 100 ML IVPB SCH ×2 (09:51→20:04)
--- NOTE | 2019-12-04 10:34 | PRG ---
DATE OF SERVICE: 12/04/2019 SUBJECTIVE: Kenny Hernandez apparently became hypersomnolent last night with fentanyl. The patch was removed. He was given Narcan. He is awake now. He says his chest discomfort is better today. OBJECTIVE: VITAL SIGNS: Have been stable. GENERAL: He is not having any chest pain. LUNGS: Clear. HEART: Regular rhythm. ABDOMEN: Soft and nontender. EXTREMITIES: Without edema. LABORATORY DATA: White count 24.5, hemoglobin 10.5, platelets 175. Sodium 141, potassium 4.3, chloride 110, bicarb 22, BUN 31, creatinine 2.42. IMPRESSION: 1. Coronary artery disease, status post torsades. 2. [id number] kidney disease with a bump in his creatinine as expected. I suspect his renal function decline will plateau and then return towards normal for him. 3. Non-Q-wave myocardial infarction. PLAN: Continue supportive care. Head CT was ordered this morning when he was hypersomnolent. He woke up with the Narcan. Not surprisingly, his head CT is unremarkable. Job ID: [id number]
[2019-12-04 13:50] LABS: Hemoglobin 8.7 g/dL (14.0-18.0)
[2019-12-04] MEDS: Amiodarone 450 MG in Dextrose 5% in Water 250 ML IVPB SCH (13:54)
--- NOTE | 2019-12-04 15:26 | CON ---
DATE OF CONSULTATION: REASON FOR CONSULTATION: Elevated creatinine. HISTORY OF PRESENT ILLNESS: This 68-year-old gentleman, presented to the hospital a few days ago with a baseline creatinine of 1.48, which improved to 1.25 yesterday and increased to 2.4. He had an acute myocardial infarction and CPR was performed. No further history could be obtained. PAST MEDICAL HISTORY: Hypertension, colon polyps, history of CKD, history of toe surgery, partial foot amputation. SOCIAL HISTORY: Previous smoker. MEDICATIONS: Home medication list reviewed. Hospital medication list reviewed. REVIEW OF SYSTEMS: Unobtainable. PHYSICAL EXAMINATION: GENERAL: The patient is resting. VITAL SIGNS: Afebrile, pulse 75, breathing at 16, and blood pressure was 90/60. HEENT: Head normocephalic and atraumatic. Eyes intact, no ulcers. Nose intact, no ulcers. Ears intact, no ulcers. NECK: Supple. No JVD. CHEST: Symmetrical and clear. CARDIOVASCULAR: Shows S1 and S2, no rub, no murmur. GASTROINTESTINAL: Abdomen is soft, bowel sounds positive. EXTREMITIES: Show no edema or ulcers. SKIN: Shows no rash or petechiae. MUSCULOSKELETAL: Shows no joint swelling or stiffness. GENITOURINARY: Shows no Sawyer or CVA tenderness. NEUROLOGIC: The patient is resting. ASSESSMENT AND RECOMMENDATION: 1. Acute kidney injury with chronic kidney disease, most likely due to cardiorenal syndrome. No indication for dialysis. 2. Hypotension, stable. 3. Anemia, stable. Medication based on GFR appropriate. We will follow closely. Job ID: [id number]
--- NOTE | 2019-12-04 16:40 | PRG ---
DATE OF SERVICE: 12/04/2019 SUBJECTIVE: This is a 68-year-old male, hospitalized over the weekend with chest pain, dyspnea, was found to have non-Q-wave myocardial infarction. The patient also has had blood in stool after admission after he received Lovenox. An EGD done by Dr. David Cavazos, did not show any pathology. The patient was prepped for a colonoscopy yesterday, but in the meantime, there were multiple problems including cardiac arrhythmia and he also became unresponsive. He woke up after IV Narcan. He is sleeping at the present time. As per the nurses, he has had no bleeding throughout the night and this morning. Blood count is stable at 10.5. He had been seen by Cardiology and underwent cardiac cath and was found to have severe coronary artery disease. The patient unfortunately developed elevation in creatinine after the contrast for the cardiac cath. He at this time denies any abdominal pain, chest pain, dyspnea, orthopnea. OBJECTIVE: GENERAL: He is appears comfortable. He is kind of sleepy at this time. VITAL SIGNS: Afebrile, pulse is 93, blood pressure is 117/57. CARDIOVASCULAR: Normal heart sounds. LUNGS: Clear to auscultation. ABDOMEN: Soft and nontender at this time. LABORATORY DATA: From today, WBC count 24.5, hematocrit 30.8, platelet count 175, and bandemia of 23%. Chemistry panel: Lytes are normal, BUN is 31, creatinine 2.42, bilirubin 0.7, AST 124, ALT 37, alkaline phosphatase 42, troponin markedly elevated , Negative EGD. The colonoscopy was not done because of multiple other problems including cardiac arrhythmia, coronary artery disease. IMPRESSION: 1. Cardiac arrhythmia and coronary artery disease. 2. Anemia due to blood loss. 3. Myocardial infarction .. 4. Acute on chronic kidney disease. RECOMMENDATIONS: 1. Continue clear liquid diet. 2. Follow up H and H. 3. will hold off the colonoscopy will have to wait for a couple of days before we proceed. Job ID: [id number] [facility]
--- NOTE | 2019-12-04 17:08 | EKG ---
Test Reason : STAT Blood Pressure : / mmHG Vent. Rate : 122 BPM Atrial Rate : 122 BPM P-R Int : 146 ms QRS Dur : 086 ms QT Int : 294 ms P-R-T Axes : 061 -10 156 degrees QTc Int : 418 ms Sinus tachycardia Abnormal ECG Confirmed by TORI CHUN ([id number]) on 12/04/2019 5:08:20 PM Referred By: DARWIN Confirmed By:TORI CHUN
--- NOTE | 2019-12-04 17:11 | EKG ---
Test Reason : Blood Pressure : / mmHG Vent. Rate : 149 BPM Atrial Rate : 163 BPM P-R Int : 000 ms QRS Dur : 126 ms QT Int : 334 ms P-R-T Axes : 000 039 008 degrees QTc Int : 526 ms Supraventricular tachycardia Right bundle branch block Marked ST abnormality, possible septal subendocardial injury Abnormal ECG Confirmed by TORI CHUN ([id number]) on 12/04/2019 5:10:49 PM Referred By: Confirmed By:TORI CHUN
[2019-12-04] MEDS: HYDROcodone/Acetaminophen 5/325 mg Tablet PO PRN (17:22)
--- NOTE | 2019-12-04 19:59 | PDOC.HOSPP ---
- Subjective Encounter Date: 12/04/19 Subjective: No further episodes of bleeding were reported. The patient is complaining of chest soreness that is reproducible to palpation since he received CPR. - Objective Vital Signs & Weight: Vital Signs (12 hours) Temp Pulse Pulse Ox 12/04/19 18:50 93 12/04/19 17:03 98 12/04/19 16:00 98.1 F 12/04/19 12:45 93 12/04/19 12:00 97.8 F 12/04/19 10:46 93 L 12/04/19 08:00 97.5 F L 93 L Weight Weight 207 lb 3.752 oz Most Recent Monitor Data Heart Rate from ECG 94 NIBP 92/60 NIBP BP-Mean 70 Respiration from ECG 21 SpO2 100 I&O: 12/03/19 12/04/19 12/05/19 06:59 06:59 06:59 Intake Total 6538.9 4524 2978.1 Output Total 2900 5125 755 Balance 3638.9 -601 2223.1 Result Diagrams: 12/04/19 19:14 12/04/19 03:45 Additional Labs: Accuchecks 12/04/19 03:40 POC Glucose 137 H Hospitalist ROS - Medication Medications: Active Medications Generic Name Dose Route Start Last Admin Trade Name Freq PRN Reason Stop Dose Admin Hydrocodone Bitart/Acetaminophen 1 tab 12/02/19 21:57 12/04/19 17:22 [place] 5/325 PO 1 tab Q4H PRN Administration Moderate Pain (4-6) Fentanyl 75 mcg 12/03/19 12:00 12/03/19 11:33 Durages[place] TD 75 mcg Q3D NAZANIN Administration Gabapentin 800 mg 12/03/19 09:00 12/04/19 17:22 Neurontin PO 800 mg QID NAZANIN Administration Pantoprazole Sodium 80 mg/ 100 mls @ 10 mls/hr 12/02/19 06:00 12/04/19 09:51 Sodium Chloride IVPB 100 mls INF NAZANIN Administration Amiodarone HCl 450 mg/ 259 mls @ 0 mls/hr 12/03/19 16:30 12/04/19 13:54 Dextrose/Water IVPB 259 mls INF NAZANIN Administration Protocol Per Protocol Sodium Chloride 1,000 mls @ 125 mls/hr 12/04/19 06:00 12/04/19 13:48 Normal Saline 0.9% IV 1,000 mls .Q8H NAZANIN Administration Morphine Sulfate 2 mg 12/03/19 09:32 12/03/19 09:38 Morphine SLOW IVP 2 mg Q4H PRN Administration Pain Morphine Sulfate 4 mg 12/03/19 11:03 12/03/19 23:41 Morphine SLOW IVP 4 mg Q1H PRN Administration Chest Pain Sertraline HCl 75 mg 12/03/19 21:00 12/03/19 21:47 Zoloft PO 75 mg HS NAZANIN Administration Sodium Chloride 10 ml 12/02/19 05:04 12/02/19 05:45 Flush - Normal Saline IVF 10 ml PRN PRN Administration Saline Flush Throat Lozenges 1 paco 12/02/19 20:33 12/02/19 21:14 Cepastat Lozenges PO 1 paco Q2H PRN Administration Sore Throat Thyroid 90 mg 12/03/19 09:00 12/04/19 08:43 [place] Thyroid PO 90 mg DAILY NAZANIN Administration - Exam General Appearance: awake alert ENT: normocephalic atraumatic Neck: supple Heart: RRR Respiratory: CTAB, no wheezes, no rales, no ronchi Gastrointestinal: soft, non-tender, non-distended, normal bowel sounds Hosp A/P (1) Anemia due to acute blood loss Code(s): D62 - ACUTE POSTHEMORRHAGIC ANEMIA Status: Acute (2) Gastrointestinal bleeding Code(s): K92.2 - GASTROINTESTINAL HEMORRHAGE, UNSPECIFIED Status: Acute (3) Hypokalemia Code(s): E87.6 - HYPOKALEMIA Status: Acute (4) Cardiac arrest Code(s): I46.9 - CARDIAC ARREST, CAUSE UNSPECIFIED Status: Acute (5) Demand ischemia Code(s): I24.8 - OTHER FORMS OF ACUTE ISCHEMIC HEART DISEASE Status: Acute (6) GRACE (acute kidney injury) Code(s): N17.9 - ACUTE KIDNEY FAILURE, UNSPECIFIED Status: Acute - Plan 12/02: Patient is currently being managed in the CCU. He is receiving the second out of 3 packed RBCs. His rhythm was reportedly torsade de poin during the code and he responded to defibrillation. EGD yesterday did not reveal any source of bleeding. Due to the active nature of the bleeding, I will order a stat bleeding scan. He is also scheduled for colonoscopy today. Replace potassium. Creatinine level slightly trending up which is likely due to shock related to bleeding and cardiac arrest. GI and cardiology on board. 12/03: Hemoglobin level is stable. No further episodes of bleeding are noted. GI will postpone colonoscopy for few days given his recent cardiac events. Potassium level has been replaced. No recurrence of torsade. Status post coronary angiography which showed evidence of coronary artery disease but no intervention was done given the patient is recent severe GI bleeding. Acute kidney injury has worsened likely due to combination of contrast nephropathy and shock to the kidney related to the cardiac arrest. Continue IV fluids and follow kidney function.
[2019-12-04] MEDS: Morphine 2 MG/ML SYRINGE SLOW IVP PRN (22:15)
[2019-12-05] MEDS: HYDROcodone/Acetaminophen 5/325 mg Tablet PO PRN ×2 (01:01→22:56)
[2019-12-05] MEDS: Sodium Chloride 0.9% 1,000 ML IV SCH ×3 (01:34→09:44)
[2019-12-05] MEDS: Morphine 2 MG/ML SYRINGE SLOW IVP PRN ×3 (02:38→11:53)
[2019-12-05] MEDS: Pantoprazole 80 MG in Sodium Chloride 0.9% 100 ML IVPB SCH (03:20)
[2019-12-05] MEDS: Amiodarone 450 MG in Dextrose 5% in Water 250 ML IVPB SCH ×2 (03:20→19:55)
[2019-12-05 03:55] LABS: Anion Gap 11 mmol/L (10-20); BUN (Urea Nitrogen) 28 mg/dL (8.4-25.7); Calc. Creatinine Clearance 57 mL/min (70-130); Calcium 7.2 mg/dL (7.8-10.44); Carbon Dioxide 22 mmol/L (23-31); Chloride 105 mmol/L (98-107); Estimated GFR-MDRD 41; Glucose 132 mg/dL (80-115); Potassium 4.3 mmol/L (3.5-5.1); Sodium 134 mmol/L (136-145)
[2019-12-05 04:06] LABS: Band 44 % (5-11); Hemoglobin 8.3 g/dL (14.0-18.0); Hypochromia SLIGHT = 6-15 cells (100X) (0-5/hpf); Lymphocytes 2 % (21-51); MDiff Complete? YES; Mean Corpuscular HGB CONC 33.4 g/dL (32.0-36.0); Mean Corpuscular Hemoglobin 31.6 pg (27.0-31.0); Mean Corpuscular Volume 94.8 fL (78.0-98.0); Mean Platelet Volume 8.7 fL (7.4-10.4); Monocytes 2 % (0-10); Neutrophil 52 % (42-75); Platelet Count 116 thou/uL (130-400); Platelet Morphology Comment Appears Decreased; RBC Distribution Width 13.9 % (11.5-14.5); Red Blood Cell (RBC) Count 2.63 mill/uL (4.70-6.10)
[2019-12-05 09:42] LABS: Hemoglobin 9.3 g/dL (14.0-18.0)
[2019-12-05] MEDS: Gabapentin 400 MG CAP PO SCH ×4 (09:48→22:58)
[2019-12-05 10:27] LABS: Actual Bicarbonate (HCO3a) 17.1 mEq/L (22-28); Base Excess (BEa) -6.9 mEq/L (-2.0 to +3.0); CO2 Tension 29.1 mmHg (35.0-45.0); Carboxyhemoglobin (COHb) 0.8 gm% (0.0-3.0); Hemoglobin (Hb) 9.7 g/dL (14.0-18.0); Potassium - ABG Lab 4.18 mmol/L (3.70-5.30); pH, Arterial 7.39 (7.35-7.45)
[2019-12-05 10:28] LABS: O2 Tension (PaO2), arterial 54.5 mmHg (> 80.0)
[2019-12-05 10:29] LABS: ALV-art Gradient 265.625 (0-20); Puncture Site RBA
[2019-12-05] MEDS ORDERED: Furosemide 40 MG/4 ML VIAL ONE (10:49)
[2019-12-05] MEDS: Furosemide 40 MG/4 ML VIAL SLOW IVP SCH ×2 (11:02→11:58)
--- NOTE | 2019-12-05 11:02 | PDOC.HOSPP ---
- Subjective Encounter Date: 12/05/19 Subjective: The patient has been in respiratory distress this morning requiring BiPAP. Currently he is sitting in the bed on BiPAP but does not appear to be in any acute distress and is able to hold a full conversations. Hemoglobin dropped overnight and the patient received transfusion. - Objective Vital Signs & Weight: Vital Signs (12 hours) Temp Pulse Resp Pulse Ox 12/05/19 10:30 93 12/05/19 08:22 92 12/05/19 08:00 33 H 94 L 12/05/19 07:25 98.0 F 12/05/19 07:00 98.0 F 12/05/19 04:00 97.7 F 12/05/19 02:01 96 12/05/19 00:00 97.5 F L Weight Weight 207 lb 3.752 oz Most Recent Monitor Data Heart Rate from ECG 96 NIBP 124/66 NIBP BP-Mean 85 Respiration from ECG 40 SpO2 97 I&O: 12/04/19 12/05/19 12/06/19 06:59 06:59 06:59 Intake Total 4524 6115.1 900 Output Total 5125 1645 345 Balance -601 4470.1 555 Result Diagrams: 12/05/19 09:29 12/05/19 03:25 Hospitalist ROS - Medication Medications: Active Medications Generic Name Dose Route Start Last Admin Trade Name Freq PRN Reason Stop Dose Admin Hydrocodone Bitart/Acetaminophen 1 tab 12/02/19 21:57 12/05/19 01:01 [place] 5/325 PO 1 tab Q4H PRN Administration Moderate Pain (4-6) Fentanyl 75 mcg 12/03/19 12:00 12/03/19 11:33 [place] TD 75 mcg Q3D NAZANIN Administration Gabapentin 800 mg 12/03/19 09:00 12/05/19 09:48 Neurontin PO 800 mg QID NAZANIN Administration Pantoprazole Sodium 80 mg/ 100 mls @ 10 mls/hr 12/02/19 06:00 12/05/19 03:20 Sodium Chloride IVPB 100 mls INF NAZANIN Administration Amiodarone HCl 450 mg/ 259 mls @ 0 mls/hr 12/03/19 16:30 12/05/19 03:20 Dextrose/Water IVPB 259 mls INF NAZANIN Administration Protocol Per Protocol Morphine Sulfate 2 mg 12/03/19 09:32 12/05/19 06:50 Morphine SLOW IVP 2 mg Q4H PRN Administration Pain Morphine Sulfate 4 mg 12/03/19 11:03 12/03/19 23:41 Morphine SLOW IVP 4 mg Q1H PRN Administration Chest Pain Sertraline HCl 75 mg 12/03/19 21:00 12/04/19 22:13 Zoloft PO 75 mg HS NAZANIN Administration Sodium Chloride 10 ml 12/02/19 05:04 12/02/19 05:45 Flush - Normal Saline IVF 10 ml PRN PRN Administration Saline Flush Throat Lozenges 1 paco 12/02/19 20:33 12/02/19 21:14 Cepastat Lozenges PO 1 paco Q2H PRN Administration Sore Throat Thyroid 90 mg 12/03/19 09:00 12/05/19 09:48 [place] Thyroid PO 90 mg DAILY NAZANIN Administration - Exam General Appearance: awake alert Neck: supple, no JVD Heart: RRR Respiratory - other findings: Crackles at the bases bilaterally. Neurological: cranial nerve grossly intact, no new deficit Psychiatric: A&O x 3 (.) Hosp A/P (1) Anemia due to acute blood loss Code(s): D62 - ACUTE POSTHEMORRHAGIC ANEMIA Status: Acute (2) Gastrointestinal bleeding Code(s): K92.2 - GASTROINTESTINAL HEMORRHAGE, UNSPECIFIED Status: Acute (3) Hypokalemia Code(s): E87.6 - HYPOKALEMIA Status: Acute (4) Cardiac arrest Code(s): I46.9 - CARDIAC ARREST, CAUSE UNSPECIFIED Status: Acute (5) Demand ischemia Code(s): I24.8 - OTHER FORMS OF ACUTE ISCHEMIC HEART DISEASE Status: Acute (6) GRACE (acute kidney injury) Code(s): N17.9 - ACUTE KIDNEY FAILURE, UNSPECIFIED Status: Acute - Plan 12/02: Patient is currently being managed in the CCU. He is receiving the second out of 3 packed RBCs. His rhythm was reportedly torsade de poin during the code and he responded to defibrillation. EGD yesterday did not reveal any source of bleeding. Due to the active nature of the bleeding, I will order a stat bleeding scan. He is also scheduled for colonoscopy today. Replace potassium. Creatinine level slightly trending up which is likely due to shock related to bleeding and cardiac arrest. GI and cardiology on board. 12/03: Hemoglobin level is stable. No further episodes of bleeding are noted. GI will postpone colonoscopy for few days given his recent cardiac events. Potassium level has been replaced. No recurrence of torsade. Status post coronary angiography which showed evidence of coronary artery disease but no intervention was done given the patient is recent severe GI bleeding. Acute kidney injury has worsened likely due to combination of contrast nephropathy and shock to the kidney related to the cardiac arrest. Continue IV fluids and follow kidney function. 12/04: Acute respiratory failure with hypoxia. Bilateral infiltrates on chest x-ray more on the right side. Hypoxia on ABG. Differential diagnoses include: 1-TACO: The patient was taking Lasix at home, he has cardiac disease and kidney disease, he received 5 units of blood and has been on IV fluids for the past 2 days. 2-TRALI: Post transfusion reaction. 3-Aspiration pneumonia: No bandemia and infiltrates. The patient is status post cardiac arrest. 4-pulmonary embolism: The patient has not been on anticoagulation due to GI bleed bleeding. However, since the x-ray showed bilateral infiltrates this diagnosis is less likely. Check BNP, administer Lasix 40 mg IV, start IV Unasyn, and continue BiPAP as needed. Avoid transfusion unless hemoglobin is less than 8.
--- NOTE | 2019-12-05 11:05 | RAD ---
EXAM: Single view of the chest HISTORY: Shortness of breath COMPARISON: 12/01/2019 FINDINGS: Single view of the chest shows an enlarged cardiomediastinal silhouette. Diffuse multifocal airspace opacities are seen in the lungs. The bones are unremarkable. IMPRESSION: Multifocal pneumonia
[2019-12-05] MEDS: Ampicillin/Sulbactam 1.5 GM in Sodium Chloride 0.9% 100 ML IVPB SCH ×2 (11:44→17:04)
[2019-12-05 12:14] LABS: Hemoglobin 9.5 g/dL (14.0-18.0)
--- NOTE | 2019-12-05 13:28 | PRG ---
DATE OF SERVICE: 12/05/2019 SUBJECTIVE: A 68-year-old gentleman, being seen for acute kidney injury. The patient denies any nausea, vomiting, but has some dyspnea. OBJECTIVE: General: The patient is resting. Vital Signs: Afebrile, pulse 95, breathing 16, blood pressure 106/70. HEENT: Head normocephalic and atraumatic. Eyes intact, no ulcers. Nose intact, no ulcers. Ears intact, no ulcers. Neck: Supple. No JVD. Chest: Symmetrical and clear. Cardiovascular: Shows S1 and S2, no rub, no murmur. Gastrointestinal: Abdomen is soft, bowel sounds positive. Extremities: Show no edema or ulcers. Skin: Shows no rash or petechiae. Musculoskeletal: Shows no joint swelling or stiffness. Genitourinary: Shows no Sawyer or CVA tenderness. Neurologic: Motor intact. Cranial nerves intact. LABORATORY DATA: Hemoglobin 9.5. Creatinine is 1.7. ASSESSMENT AND PLAN: 1. Acute kidney injury, improved. 2. Chronic kidney disease, stage 3, stable. 3. Hypertension, stable. Medication based on GFR appropriate. Job ID: [id number]
--- NOTE | 2019-12-05 15:15 | ULT ---
RENAL ULTRASOUND: INDICATION: Acute kidney insufficiency. FINDINGS: The right kidney measures 12.9 cm length. The left kidney measures 11.4 cm length. Cortical thickne ss and cortical echogenicity is normally maintained bilaterally. No hydronephrosis. The bladder is mildly distended with Sawyer catheter in place. Bladder appears unremarkable as visual ized. IMPRESSION: Unremarkable renal ultrasound. POS: AH
[2019-12-05] MEDS ORDERED: Amiodarone 150 MG, Admixture Fee 1 EACH in Dextrose 5% in Water 100 ML IVPB SCH (15:30)
[2019-12-05] MEDS: Morphine 4 MG/ML VIAL SLOW IVP PRN (16:17)
--- NOTE | 2019-12-05 17:10 | PRG ---
DATE OF SERVICE: 12/05/2019 SUBJECTIVE: Kenny Hernandez received blood and then required BiPAP overnight. Chest radiograph suggests pulmonary edema. He has gone into atrial flutter this afternoon. Cardiology is aware. OBJECTIVE: LUNGS: Remarkable for crackles assisted up bilaterally. HEART: Regular rhythm. Rapid rate. ABDOMEN: Soft and nontender. EXTREMITIES: Without asymmetry. LABORATORY DATA: Hemoglobin is 9.5 and stable. He was given 80 of Lasix total this morning with excellent diuresis, so far. He has had 3095 out. IMPRESSION: Pulmonary edema secondary to mitral regurgitation on top of coronary artery disease and depressed left ventricular systolic function. PLAN: Continue supportive care. BiPAP as needed. I just examined him again and I do not see any indication for intubation at this time. CRITICAL CARE TIME: 30 minutes. Job ID: [id number]
--- NOTE | 2019-12-05 18:08 | PRG ---
DATE OF SERVICE: 12/05/2019 TOTAL CRITICAL CARE TIME: 40 minutes. SUBJECTIVE: Mr. Hernandez was checked on several times during the day. This morning, he was on BiPAP. His heart rate was stable in the 90s. Blood pressure is also stable off norepinephrine. He has no current complaints. He was wanting to know why he had not undergone a colonoscopy. In the afternoon, he developed atrial flutter. Heart rate was in the 140s. He was off BiPAP. He seemed to be tolerating well. He is on IV amiodarone. OBJECTIVE: CURRENT VITAL SIGNS: Blood pressure 100/64, pulse 145, and respirations 20. LUNGS: Decreased breath sounds are noted bilaterally. HEART: Tachycardic. ABDOMEN: Soft, nontender, nondistended. EXTREMITIES: No edema. PERTINENT LABORATORY DATA: Hemoglobin dropped from 10.5 to 8.7 (he did receive 2 units of packed red blood cells). IMPRESSION: 1. New onset atrial flutter. 2. CAD. 3. Chronically occluded circumflex artery. 4. Overall LVEF 40% to 45%. 5. Severe mitral regurgitation. RECOMMENDATIONS: I discussed the case with Dr. Harry Ramirez. We both agree Mr. Hernandez is unlikely to continue with the atrial flutter. I did give him IV bolus of amiodarone 150 mg. He continues to be in atrial flutter. We decided to proceed with the cardioversion. I discussed the procedure in full detail with Mr. Hernandez. Risks include, not limited to the following: stroke, need for repeat cardioversion, pacemaker placement. I also discussed the risks with his . We will also help avoid needing anticoagulation therapy given this has been a short course of atrial flutter. Job ID: [id number]
[2019-12-05 18:32] LABS: Hemoglobin 9.3 g/dL (14.0-18.0)
[2019-12-05 19:41] LABS: Anion Gap 14 mmol/L (10-20); BUN (Urea Nitrogen) 26 mg/dL (8.4-25.7); Calc. Creatinine Clearance 60 mL/min (70-130); Calcium 7.4 mg/dL (7.8-10.44); Carbon Dioxide 22 mmol/L (23-31); Chloride 100 mmol/L (98-107); Estimated GFR-MDRD 43; Glucose 171 mg/dL (80-115); Potassium 3.5 mmol/L (3.5-5.1); Sodium 132 mmol/L (136-145)
[2019-12-05] MEDS ORDERED: Digoxin 0.5 MG/2 ML AMP SLOW IVP SCH (19:45)
[2019-12-05] MEDS ORDERED: Potassium Chloride 20 MEQ in Premix Bag 1 BAG IVPB SCH (20:00)
[2019-12-05] MEDS: Pantoprazole 40 MG VIAL IVP SCH (20:19)
[2019-12-05] MEDS: Furosemide 20 MG/2 ML VIAL SLOW IVP SCH (21:25)
[2019-12-05] MEDS: Diltiazem HCl 125 MG, Admixture Fee 1 EACH in Sodium Chloride 0.9% 100 ML IVPB SCH (22:35)
[2019-12-05] MEDS ORDERED: Furosemide 20 MG/2 ML VIAL SLOW IVP SCH (22:45)
[2019-12-06] MEDS: Ampicillin/Sulbactam 1.5 GM in Sodium Chloride 0.9% 100 ML IVPB SCH ×5 (00:28→23:07)
[2019-12-06] MEDS: Morphine 2 MG/ML SYRINGE SLOW IVP PRN ×2 (04:26→22:56)
[2019-12-06 05:00] LABS: Anion Gap 16 mmol/L (10-20); BUN (Urea Nitrogen) 27 mg/dL (8.4-25.7); Calc. Creatinine Clearance 62 mL/min (70-130); Calcium 7.6 mg/dL (7.8-10.44); Carbon Dioxide 23 mmol/L (23-31); Chloride 99 mmol/L (98-107); Estimated GFR-MDRD 45; Glucose 134 mg/dL (80-115); Potassium 3.5 mmol/L (3.5-5.1); Sodium 134 mmol/L (136-145)
[2019-12-06 05:29] LABS: Band 21 % (5-11); Lymphocytes 5 % (21-51); MDiff Complete? YES; Mean Corpuscular HGB CONC 33.3 g/dL (32.0-36.0); Mean Corpuscular Hemoglobin 31.6 pg (27.0-31.0); Mean Corpuscular Volume 94.8 fL (78.0-98.0); Mean Platelet Volume 9.3 fL (7.4-10.4); Monocytes 4 % (0-10); Neutrophil 70 % (42-75); Platelet Count 152 thou/uL (130-400); Platelet Morphology Comment Appears Adequate; RBC Distribution Width 14.3 % (11.5-14.5); Red Blood Cell (RBC) Count 2.85 mill/uL (4.70-6.10)
[2019-12-06] MEDS: Diltiazem HCl 125 MG, Admixture Fee 1 EACH in Sodium Chloride 0.9% 100 ML IVPB SCH (07:48)
[2019-12-06] MEDS: Morphine 4 MG/ML VIAL SLOW IVP PRN ×3 (08:15→19:16)
[2019-12-06] MEDS: Pantoprazole 40 MG VIAL IVP SCH ×2 (08:21→19:18)
[2019-12-06] MEDS: Furosemide 20 MG/2 ML VIAL SLOW IVP SCH ×2 (08:21→19:18)
[2019-12-06] MEDS: Gabapentin 400 MG CAP PO SCH ×4 (09:25→19:18)
[2019-12-06] MEDS: Amiodarone 450 MG in Dextrose 5% in Water 250 ML IVPB SCH (10:35)
--- NOTE | 2019-12-06 13:20 | OP ---
DATE OF PROCEDURE: 12/05/2019 PREPROCEDURE DIAGNOSIS: Atrial fibrillation. POSTPROCEDURE DIAGNOSIS: Atrial fibrillation. PROCEDURE PERFORMED: Failed cardioversion x3. DESCRIPTION OF PROCEDURE: Mr. Hernandez recently He had rapid ventricular response. This was difficult to control. He was hypotensive. He underwent cardioversion. Propofol was used for conscious sedation. Cardioversion performed at 100, 150, and 200 joules. He continues to be hypotensive. He did go into sinus rhythm briefly. Due to continued hypotension likely from propofol, we decided to no longer proceed with cardioversion. He was back in sinus rhythm within 20 to 30 minutes. We will continue current supportive care. Job ID: [id number]
--- NOTE | 2019-12-06 13:25 | PRG ---
DATE OF SERVICE: 12/06/2019 SUBJECTIVE: Mr. Hernandez continues to do surprisingly well despite everything he has been through. He underwent 1 successful cardioversion yesterday. He was given amiodarone 150 mg IV. He had been on IV amiodarone over the weekend due to torsade de pointes. After cardioversion, his decreased to 70s. He slowly increased. He then went back in atrial fibrillation last evening with heart rates in the 130s to 140s. Fortunately, he is now in the 70s, but continues to have paroxysmal atrial fib/flutter. OBJECTIVE: VITAL SIGNS: Blood pressure 115/74, pulse 71, temperature afebrile. LUNGS: Crackles noted bilaterally. HEART: Regular rate and rhythm. ABDOMEN: Soft, nontender, nondistended. EXTREMITIES: 1 to 2+ pitting edema. PERTINENT LABORATORY DATA: Hemoglobin 9.0, hematocrit 27. Creatinine 1.56, sodium 134. IMPRESSION: 1. Non-Q-wave myocardial infarction. 2. Atrial fibrillation. 3. Coronary artery disease. 4. Status post stent placement previously. 5. Status post abdominal aortic aneurysm repair. 6. GI bleed. RECOMMENDATIONS: Mr. Hernandez unfortunately continues to be tenuous. He has not been evaluated for the etiology to his GI bleed due to him being unstable. He also had a recent non-Q-wave DE, likely from demand ischemia. He does have severe mitral regurgitation on an echo in addition to LVEF of 40%. Views were difficult. I discussed case with [facility]. They are willing to take Mr. Hernandez for further treatment. He may need intra-aortic balloon pump support due to his severe MR and continued intermittent runs of atrial fibrillation. At some point, he may also require mitral valve clip versus mitral valve ring. We will leave it to discretion. Otherwise, I have no further recommendations. Job ID: [id number]
--- NOTE | 2019-12-06 14:28 | PRG ---
DATE OF SERVICE: 12/05/2019 HISTORY OF PRESENT ILLNESS: This is a 68-year-old male with multiple medical problems including acute GI bleeding, myocardial infarction, mild kidney injury, etc. The patient has had an EGD 2 days ago. The plan was to do a colonoscopy on Wednesday; but unfortunately, the patient developed cardiac arrhythmia and also myocardial infarction. The patient's colonoscopy is on hold. The patient's blood count was stable until yesterday morning at 10.5. Overnight, he has had some large stools x3 yesterday and blood count dropped to 8.1. He has been transfused. Today, hemoglobin is 8.3. He has had no stool this morning. No abdominal pain. No nausea or vomiting. He is tachypneic and also had chest pain over the rib area. He is on BiPAP. Denies any chest pain or abdominal pain. The patient has had what appears to be a perforated diverticula in 2016 and hospitalized at [facility] in [place]. . The patient had a colonoscopy by me in January 2016, which revealed a rectal polyp, hemorrhoids, and sigmoid diverticula. OBJECTIVE: GENERAL: He appears comfortable and does talk very well; however, he is dyspnoeic and he is on BiPAP. VITAL SIGNS: Pulse is 92, blood pressure 111/59. _Herat sounds are_ normal. LUNGS: Clear to auscultation. ABDOMEN: Soft and nontender. No organomegaly. No masses. LABORATORY DATA: From this morning, lytes are normal. BUN is 28, creatinine is 1.70, glucose 138, calcium 7.2. CBC; hemoglobin is 8.3, hematocrit 24.9, WBC is 19,000, polymorphs 52. He has bandemia of 44%. IMPRESSION: 1. He is going to be seen by Dr. Ramirez for his tachypnea and will make further recommendations about the tachypnea. 2. Gastrointestinal bleeding, etiology unclear. He had an EGD. The patient could possibly have some small bowel pathology for the bleeding. The patient had a colonoscopy 4 years ago and was found to have sigmoid diverticula. 3. Myocardial infarction. 4. Gastrointestinal bleeding, source unclear. 5. Anemia due to blood loss. The bandemia is somewhat worrisome, 40% bands. PLAN: 1. Continue IV fluids. 2. Dr. Ramirez to see to address the respiratory problem. 3. Transfuse p.r.n. 4. Continue PPI. Job ID: [id number] [id number]
--- NOTE | 2019-12-06 15:09 | PRG ---
DATE OF SERVICE: 12/06/2019 SUBJECTIVE: Kenny Hernandez is a 68-year-old male hospitalized with chest pain, dyspnea on exertion, and hemorrhagic GI bleeding. He underwent EGD by Dr. David Cavazos over the weekend, which revealed no pathology. The plan was to do a colonoscopy the day after, but he developed what appears to be acute myocardial infarction and also ventricular arrhythmia. The patient was shocked. He is back in sinus rhythm. The patient has had GI bleeding until yesterday morning. He has had no bleeding. He is passing stool, but there is no black stool or any fresh blood in the stool. He appears actually comfortable. The plan is being made to transfer him to [facility] in [place] because of the mitral valve disease and cardiac arrhythmia. He actually appears much better than yesterday. Denies abdominal pain or chest pain. OBJECTIVE: VITAL SIGNS: Stable. He is afebrile. His pulse rate is 71, blood pressure 124/63. CARDIOVASCULAR SYSTEM: Normal heart sounds. LUNGS: Few basilar rales. ABDOMEN: Soft. Abdomen is nontender. No organomegaly. No masses. LABORATORY DATA: Most recent lab data: WBC 19,000, hemoglobin 9, hematocrit 27. He still has bandemia 29%. PLAN: 1. Follow up H and H. 2. Transfuse p.r.n. 3. He is awaiting transfer to [place] hopefully today or tomorrow. We will sign off from today. Job ID: [id number]
--- NOTE | 2019-12-06 17:04 | PRG ---
DATE OF SERVICE: 12/06/2019 SUBJECTIVE: Kenny Hernandez's heart rates in the 70s this afternoon. He is in atrial fibrillation this morning. He was cardioverted multiple times yesterday with limited success. OBJECTIVE: VITAL SIGNS: Blood pressure is 112/67, respiratory rates in the 20s. He is on nasal cannula with oximetries in the low 90s. LUNGS: Remarkable for crackles at both bases. HEART: Regular rhythm. ABDOMEN: Soft. LABORATORY DATA: White count 19, hemoglobin 9, and platelets 152. Sodium 134, potassium 3.5, chloride 99, bicarb 23, BUN 27, and creatinine 1.56. IMPRESSION: 1. Coronary artery disease. 2. Mitral regurgitation that is severe and chronic. 3. Gastrointestinal blood loss. 4. Acute on chronic kidney disease, slowly improving. His blood loss anemia is stable. He does have 21% bands on today's peripheral smear but had 44% yesterday, so this is improving. He is empirically on antimicrobial therapy for possible coexistent pneumonia, but his radiograph and his clinical course with diuresis have been most consistent with volume overload associated with his transfusions. We will continue with supportive care. He is stable to transfer to [facility] in [place]. Job ID: [id number]
--- NOTE | 2019-12-06 18:47 | PRG ---
DATE OF SERVICE: 12/06/2019 SUBJECTIVE: A 68-year-old gentleman being seen for acute kidney injury. The patient denied nausea, vomiting, or chest pain. OBJECTIVE: GENERAL: The patient is awake and alert. VITAL SIGNS: Afebrile, pulse 75, breathing at 16, blood pressure . HEENT: Head normocephalic and atraumatic. Eyes intact, no ulcers. Nose intact, no ulcers. Ears intact, no ulcers. NECK: Supple. No JVD. CHEST: Symmetrical and clear. CARDIOVASCULAR: Shows S1 and S2, no rub, no murmur. GASTROINTESTINAL: Abdomen is soft, bowel sounds positive. EXTREMITIES: Show no edema or ulcers. SKIN: Shows no rash or petechiae. MUSCULOSKELETAL: Shows no joint swelling or stiffness. GENITOURINARY: Shows no Sawyer or CVA tenderness. NEUROLOGIC: Motor intact. Cranial nerves intact. LABORATORY DATA: Hemoglobin 9.0. Creatinine 1.5. ASSESSMENT AND RECOMMENDATIONS: 1. Acute kidney injury, improved. 2. Chronic kidney disease, stage 3, stable. 3. Hypertension, stable. 4. Medication based on GFR, appropriate. The patient is nonoliguric. Renal function is pretty much approaching baseline. Job ID: [id number]
--- NOTE | 2019-12-06 19:18 | EKG ---
Test Reason : Blood Pressure : / mmHG Vent. Rate : 142 BPM Atrial Rate : 284 BPM P-R Int : 000 ms QRS Dur : 090 ms QT Int : 324 ms P-R-T Axes : 000 -04 192 degrees QTc Int : 498 ms Poor data quality, interpretation may be adversely affected narrow complex regular tachycardia without well defined P waves, single PVC Marked ST abnormality, possible inferior subendocardial injury Abnormal ECG When compared with ECG of 03-DEC-2019 16:11, Atrial flutter has replaced Sinus rhythm Nonspecific T wave abnormality no longer evident in Anterior leads Confirmed by DR. Álvaro MILLER ([id number]) on 12/06/2019 7:17:43 PM Referred By: JONNA Confirmed By:DR. Álvaro MILLER
[2019-12-06] MEDS: fentaNYL 75 mcg/hour Patch TD SCH (20:02)
--- NOTE | 2019-12-06 21:32 | PDOC.HOSPP ---
- Subjective Encounter Date: 12/06/19 Subjective: Respiratory status improving. - Objective Vital Signs & Weight: Vital Signs (12 hours) Temp Pulse Ox 12/06/19 21:00 98.5 F 12/06/19 20:00 91 L 12/06/19 17:00 98.9 F 12/06/19 12:00 98.8 F Weight Weight 217 lb 2.485 oz Most Recent Monitor Data Heart Rate from ECG 71 NIBP 126/67 NIBP BP-Mean 86 Respiration from ECG 35 SpO2 90 I&O: 12/05/19 12/06/19 12/07/19 06:59 06:59 06:59 Intake Total 6115.1 3435.8 872 Output Total 3135 8743 3615 Balance 4470.1 -3584.2 -1543 Result Diagrams: 12/06/19 04:20 12/06/19 04:20 Hospitalist ROS - Medication Medications: Active Medications Generic Name Dose Route Start Last Admin Trade Name Freq PRN Reason Stop Dose Admin Hydrocodone Bitart/Acetaminophen 1 tab 12/02/19 21:57 12/05/19 22:56 [place] 5/325 PO 1 tab Q4H PRN Administration Moderate Pain (4-6) Furosemide 20 mg 12/05/19 21:00 12/06/19 19:18 Lasix SLOW IVP 20 mg Q12HR NAZANIN Administration Gabapentin 800 mg 12/03/19 09:00 12/06/19 19:18 Neurontin PO 800 mg QID NAZANIN Administration Amiodarone HCl 450 mg/ 259 mls @ 0 mls/hr 12/03/19 16:30 12/06/19 10:35 Dextrose/Water IVPB 259 mls INF NAZANIN Administration Protocol Per Protocol Ampicillin Sodium/Sulbactam 100 mls @ 200 mls/hr 12/05/19 12:00 12/06/19 17: 20 Sodium 1.5 gm/ Sodium Chloride IVPB 100 mls Q6HR NAZANIN Administration Diltiazem HCl 125 mg/ 125 mls @ 0 mls/hr 12/05/19 22:00 12/06/19 07:48 Miscellaneous Medication 1 IVPB 125 mls each/ Sodium Chloride INF NAZANIN Administration Protocol As Directed Morphine Sulfate 2 mg 12/03/19 09:32 12/06/19 04:26 Morphine SLOW IVP 2 mg Q4H PRN Administration Pain Morphine Sulfate 4 mg 12/03/19 11:03 12/06/19 19:16 Morphine SLOW IVP 4 mg Q1H PRN Administration Chest Pain Pantoprazole Sodium 40 mg 12/05/19 21:00 12/06/19 19:18 Protonix IVP 40 mg BID NAZANIN Administration Sertraline HCl 75 mg 12/03/19 21:00 12/06/19 19:18 Zoloft PO 75 mg HS NAZANIN Administration Sodium Chloride 10 ml 12/02/19 05:04 12/02/19 05:45 Flush - Normal Saline IVF 10 ml PRN PRN Administration Saline Flush Throat Lozenges 1 paco 12/02/19 20:33 12/02/19 21:14 Cepastat Lozenges PO 1 paco Q2H PRN Administration Sore Throat Thyroid 90 mg 12/03/19 09:00 12/06/19 09:27 [place] Thyroid PO 90 mg DAILY NAZANIN Administration - Exam General Appearance: awake alert ENT: normocephalic atraumatic Neck: supple Heart: irregular Respiratory: normal chest expansion, no tachypnea Gastrointestinal: soft Neurological: cranial nerve grossly intact, no focal deficits Hosp A/P (1) Anemia due to acute blood loss Code(s): D62 - ACUTE POSTHEMORRHAGIC ANEMIA Status: Acute (2) Gastrointestinal bleeding Code(s): K92.2 - GASTROINTESTINAL HEMORRHAGE, UNSPECIFIED Status: Acute (3) Hypokalemia Code(s): E87.6 - HYPOKALEMIA Status: Acute (4) Cardiac arrest Code(s): I46.9 - CARDIAC ARREST, CAUSE UNSPECIFIED Status: Acute (5) Demand ischemia Code(s): I24.8 - OTHER FORMS OF ACUTE ISCHEMIC HEART DISEASE Status: Acute (6) GRACE (acute kidney injury) Code(s): N17.9 - ACUTE KIDNEY FAILURE, UNSPECIFIED Status: Acute - Plan 12/02: Patient is currently being managed in the CCU. He is receiving the second out of 3 packed RBCs. His rhythm was reportedly torsade de poin during the code and he responded to defibrillation. EGD yesterday did not reveal any source of bleeding. Due to the active nature of the bleeding, I will order a stat bleeding scan. He is also scheduled for colonoscopy today. Replace potassium. Creatinine level slightly trending up which is likely due to shock related to bleeding and cardiac arrest. GI and cardiology on board. 12/03: Hemoglobin level is stable. No further episodes of bleeding are noted. GI will postpone colonoscopy for few days given his recent cardiac events. Potassium level has been replaced. No recurrence of torsade. Status post coronary angiography which showed evidence of coronary artery disease but no intervention was done given the patient is recent severe GI bleeding. Acute kidney injury has worsened likely due to combination of contrast nephropathy and shock to the kidney related to the cardiac arrest. Continue IV fluids and follow kidney function. 12/04: Acute respiratory failure with hypoxia. Bilateral infiltrates on chest x-ray more on the right side. Hypoxia on ABG. Differential diagnoses include: 1-TACO: The patient was taking Lasix at home, he has cardiac disease and kidney disease, he received 5 units of blood and has been on IV fluids for the past 2 days. 2-TRALI: Post transfusion reaction. 3-Aspiration pneumonia: Bandemia and infiltrates. The patient is status post cardiac arrest. 4-pulmonary embolism: The patient has not been on anticoagulation due to GI bleed bleeding. However, since the x-ray showed bilateral infiltrates this diagnosis is less likely. Check BNP, administer Lasix 40 mg IV, start IV Unasyn, and continue BiPAP as needed. Avoid transfusion unless hemoglobin is less than 8. 12/05: S/P cardioversion. Plan to transfer the patient to [place] for management of severe mitral stenosis. Respiratory status improved with diuresis and IV antibiotics.
[2019-12-07] MEDS: Morphine 4 MG/ML VIAL SLOW IVP PRN ×5 (03:54→23:54)
[2019-12-07 04:39] LABS: Band 10 % (5-11); Hemoglobin 8.7 g/dL (14.0-18.0); Hypochromia SLIGHT = 6-15 cells (100X) (0-5/hpf); Lymphocytes 4 % (21-51); MDiff Complete? YES; Mean Corpuscular HGB CONC 32.5 g/dL (32.0-36.0); Mean Corpuscular Volume 95.4 fL (78.0-98.0); Monocytes 5 % (0-10); Neutrophil 81 % (42-75); Platelet Count 197 thou/uL (130-400); Platelet Morphology Comment Appears Adequate; RBC Distribution Width 14.3 % (11.5-14.5); White Blood Cell (WBC) Count 13.6 thou/uL (4.8-10.8)
[2019-12-07 04:45] LABS: Anion Gap 12 mmol/L (10-20); BUN (Urea Nitrogen) 28 mg/dL (8.4-25.7); Calc. Creatinine Clearance 69 mL/min (70-130); Calcium 7.3 mg/dL (7.8-10.44); Carbon Dioxide 25 mmol/L (23-31); Chloride 100 mmol/L (98-107); Estimated GFR-MDRD 48; Glucose 151 mg/dL (80-115); Potassium 3.1 mmol/L (3.5-5.1); Sodium 134 mmol/L (136-145)
[2019-12-07] MEDS: Diltiazem HCl 125 MG, Admixture Fee 1 EACH in Sodium Chloride 0.9% 100 ML IVPB SCH ×2 (04:58→17:00)
[2019-12-07] MEDS: Amiodarone 450 MG in Dextrose 5% in Water 250 ML IVPB SCH ×2 (04:58→20:23)
[2019-12-07] MEDS: Ampicillin/Sulbactam 1.5 GM in Sodium Chloride 0.9% 100 ML IVPB SCH ×4 (05:11→23:54)
[2019-12-07] MEDS: Morphine 2 MG/ML SYRINGE SLOW IVP PRN (05:12)
[2019-12-07] MEDS ORDERED: Potassium Chloride 20 MEQ TAB PO SCH (07:45)
[2019-12-07] MEDS: Furosemide 20 MG/2 ML VIAL SLOW IVP SCH ×2 (08:26→20:15)
[2019-12-07] MEDS: Gabapentin 400 MG CAP PO SCH ×4 (08:26→20:15)
[2019-12-07] MEDS: Pantoprazole 40 MG VIAL IVP SCH ×2 (08:26→20:15)
--- NOTE | 2019-12-07 09:08 | CON ---
DATE OF CONSULTATION: 12/07/2019 SUBJECTIVE: Mr. Hernandez is scheduled for transfer to [place]. He has had intermittent episodes of atrial fibrillation with sinus rhythm. He appears stable, but has been tenuous. OBJECTIVE: VITAL SIGNS: Blood pressure 116/62, pulse 72, temperature afebrile. LUNGS: Rhonchi and rales bilaterally. HEART: Regular rate and rhythm. ABDOMEN: Soft, nontender, nondistended. EXTREMITIES: 1+ pitting edema. PERTINENT LABORATORY DATA: Hemoglobin 8.7, hematocrit 26.7. IMPRESSION: 1. Non-Q-wave myocardial infarction. 2. Torsade de pointes. 3. Gastrointestinal bleed. 4. Atrial fibrillation. 5. Severe mitral regurgitation. RECOMMENDATION: The patient will be transferred to [facility] hopefully today for further recommendations. His course has been quite tenuous. He has developed atrial fibrillation with congestive heart failure, likely due to being intolerant of atrial fibrillation due to severe MR. He has not been scoped due to recent DC. Job ID: [id number]
--- NOTE | 2019-12-07 13:06 | PRG ---
DATE OF SERVICE: 12/07/2019 SUBJECTIVE: Mr. Hernandez is awaiting transfer to [place]. He is not having any chest pain, although he did say he sneezed this morning which led to sternal discomfort. Morphine takes care that. OBJECTIVE: VITAL SIGNS: Heart rate 70, respiratory rate is 18, oximetry is 95% on 2 L, blood pressure 103/50. LUNGS, HEART, AND ABDOMEN: Unchanged. LABORATORY DATA: White count 13.6, hemoglobin 8.7, platelets 197. Sodium 134, potassium 3.1, chloride 100, bicarb 25, BUN 28, creatinine 1.47. IMPRESSION: 1. Coronary artery disease. 2. Mitral regurgitation. 3. GI blood loss that appears to maybe have stabilized. 4. Acute on chronic kidney disease. It is improving a little bit each day. 5. Volume overload, leading to noninvasive ventilation. 6. Sensitivity to fentanyl patch, leading to Narcan early in the admission. He is being treated for his acute sternal fracture related to CPR. 7. Status post torsades. PLAN: Continue supportive care. Awaiting transfer. Job ID: [id number]
--- NOTE | 2019-12-07 13:56 | PRG ---
DATE OF SERVICE: 12/07/2019 SUBJECTIVE: A 68-year-old gentleman being seen for acute kidney injury. The patient denied nausea, vomiting, or chest pain. OBJECTIVE: GENERAL: The patient is awake and alert. VITAL SIGNS: Afebrile, pulse , breathing at 16, blood pressure 103/ 52. HEENT: Head normocephalic and atraumatic. Eyes intact, no ulcers. Nose intact , no ulcers. Ears intact, no ulcers. NECK: Supple. No JVD. CHEST: Symmetrical and clear. CARDIOVASCULAR: Shows S1 and S2, no rub, no murmur. GASTROINTESTINAL: Abdomen is soft, bowel sounds positive. EXTREMITIES: Show no edema or ulcers. SKIN: Shows no rash or petechiae. MUSCULOSKELETAL: Shows no joint swelling or stiffness. GENITOURINARY: Shows no Sawyer or CVA tenderness. NEUROLOGIC: Motor intact. Cranial nerves intact. LABORATORY DATA: Hemoglobin 8.7. Creatinine is 1.4. ASSESSMENT: 1. Acute kidney injury, stable. 2. Hypertension, stable. 3. Anemia, stable. 4. Medications based on GFR appropriate. I will sign off on this patient . Job ID: [id number] MTDD
--- NOTE | 2019-12-07 14:54 | PDOC.HOSPP ---
- Subjective Encounter Date: 12/07/19 Subjective: Still complaining of R sided chest pain over his ribs. - Objective Vital Signs & Weight: Vital Signs (12 hours) Temp Pulse Pulse Ox 12/07/19 12:24 95 12/07/19 12:00 98.5 F 12/07/19 11:33 70 12/07/19 08:00 98.3 F 91 L 12/07/19 04:00 98.4 F Weight Weight 218 lb 7.649 oz Most Recent Monitor Data Heart Rate from ECG 70 NIBP 121/73 NIBP BP-Mean 89 Respiration from ECG 26 SpO2 95 I&O: 12/06/19 12/07/19 12/08/19 06:59 06:59 06:59 Intake Total 3435.8 1322 340 Output Total 7020 2960 1070 Balance -3584.2 -1638 -730 Result Diagrams: 12/07/19 03:30 12/07/19 03:30 Hospitalist ROS - Medication Medications: Active Medications Generic Name Dose Route Start Last Admin Trade Name Freq PRN Reason Stop Dose Admin Hydrocodone Bitart/Acetaminophen 1 tab 12/02/19 21:57 12/05/19 22:56 [place] 5/325 PO 1 tab Q4H PRN Administration Moderate Pain (4-6) Furosemide 20 mg 12/05/19 21:00 12/07/19 08:26 Lasix SLOW IVP 20 mg Q12HR NAZANIN Administration Gabapentin 800 mg 12/03/19 09:00 12/07/19 12:34 Neurontin PO 800 mg QID NAZANIN Administration Amiodarone HCl 450 mg/ 259 mls @ 0 mls/hr 12/03/19 16:30 12/07/19 04:58 Dextrose/Water IVPB 259 mls INF NAZANIN Administration Protocol Per Protocol Ampicillin Sodium/Sulbactam 100 mls @ 200 mls/hr 12/05/19 12:00 12/07/19 12: 25 Sodium 1.5 gm/ Sodium Chloride IVPB 100 mls Q6HR NAZANIN Administration Diltiazem HCl 125 mg/ 125 mls @ 0 mls/hr 12/05/19 22:00 12/07/19 04:58 Miscellaneous Medication 1 IVPB 125 mls each/ Sodium Chloride INF NAZANIN Administration Protocol As Directed Morphine Sulfate 2 mg 12/03/19 09:32 12/07/19 05:12 Morphine SLOW IVP 2 mg Q4H PRN Administration Pain Morphine Sulfate 4 mg 12/03/19 11:03 12/07/19 10:29 Morphine SLOW IVP 4 mg Q1H PRN Administration Chest Pain Pantoprazole Sodium 40 mg 12/05/19 21:00 12/07/19 08:26 Protonix IVP 40 mg BID NAZANIN Administration Sertraline HCl 75 mg 12/03/19 21:00 12/06/19 19:18 Zoloft PO 75 mg HS NAZANIN Administration Sodium Chloride 10 ml 12/02/19 05:04 12/02/19 05:45 Flush - Normal Saline IVF 10 ml PRN PRN Administration Saline Flush Throat Lozenges 1 paco 12/02/19 20:33 12/02/19 21:14 Cepastat Lozenges PO 1 paco Q2H PRN Administration Sore Throat - Exam General Appearance: awake alert ENT: normocephalic atraumatic Neck: supple Heart: RRR Respiratory: normal chest expansion, no tachypnea Gastrointestinal: soft, non-tender, non-distended, normal bowel sounds Extremities: no cyanosis Neurological: cranial nerve grossly intact, no focal deficits Hosp A/P (1) Anemia due to acute blood loss Code(s): D62 - ACUTE POSTHEMORRHAGIC ANEMIA Status: Acute (2) Gastrointestinal bleeding Code(s): K92.2 - GASTROINTESTINAL HEMORRHAGE, UNSPECIFIED Status: Acute (3) Hypokalemia Code(s): E87.6 - HYPOKALEMIA Status: Acute (4) Cardiac arrest Code(s): I46.9 - CARDIAC ARREST, CAUSE UNSPECIFIED Status: Acute (5) Demand ischemia Code(s): I24.8 - OTHER FORMS OF ACUTE ISCHEMIC HEART DISEASE Status: Acute (6) GRACE (acute kidney injury) Code(s): N17.9 - ACUTE KIDNEY FAILURE, UNSPECIFIED Status: Acute - Plan 12/02: Patient is currently being managed in the CCU. He is receiving the second out of 3 packed RBCs. His rhythm was reportedly torsade de poin during the code and he responded to defibrillation. EGD yesterday did not reveal any source of bleeding. Due to the active nature of the bleeding, I will order a stat bleeding scan. He is also scheduled for colonoscopy today. Replace potassium. Creatinine level slightly trending up which is likely due to shock related to bleeding and cardiac arrest. GI and cardiology on board. 12/03: Hemoglobin level is stable. No further episodes of bleeding are noted. GI will postpone colonoscopy for few days given his recent cardiac events. Potassium level has been replaced. No recurrence of torsade. Status post coronary angiography which showed evidence of coronary artery disease but no intervention was done given the patient is recent severe GI bleeding. Acute kidney injury has worsened likely due to combination of contrast nephropathy and shock to the kidney related to the cardiac arrest. Continue IV fluids and follow kidney function. 12/04: Acute respiratory failure with hypoxia. Bilateral infiltrates on chest x-ray more on the right side. Hypoxia on ABG. Differential diagnoses include: 1-TACO: The patient was taking Lasix at home, he has cardiac disease and kidney disease, he received 5 units of blood and has been on IV fluids for the past 2 days. 2-TRALI: Post transfusion reaction. 3-Aspiration pneumonia: Bandemia and infiltrates. The patient is status post cardiac arrest. 4-pulmonary embolism: The patient has not been on anticoagulation due to GI bleed bleeding. However, since the x-ray showed bilateral infiltrates this diagnosis is less likely. Check BNP, administer Lasix 40 mg IV, start IV Unasyn, and continue BiPAP as needed. Avoid transfusion unless hemoglobin is less than 8. 12/05: S/P cardioversion. Plan to transfer the patient to [place] for management of severe mitral Regurgitation. Respiratory status improved with diuresis and IV antibiotics. 12/06: Pt is in Sinus rhythm. Leukocytosis and creatinine levels improving. No further episodes of bleeding. Pending transfer.
[2019-12-07 23:30] VITALS: TEMP 98.2
--- NOTE | 2019-12-08 14:47 | EKG ---
Test Reason : Blood Pressure : / mmHG Vent. Rate : 103 BPM Atrial Rate : 103 BPM P-R Int : 166 ms QRS Dur : 090 ms QT Int : 358 ms P-R-T Axes : 038 008 109 degrees QTc Int : 468 ms Sinus tachycardia Nonspecific ST and T wave abnormality Abnormal ECG Confirmed by TORI CHUN ([id number]) on 12/04/2019 11:36:43 AM Referred By: Confirmed By:TORI CHUN
--- NOTE | 2019-12-09 14:38 | EKG ---
Test Reason : CP Blood Pressure : / mmHG Vent. Rate : 091 BPM Atrial Rate : 091 BPM P-R Int : 164 ms QRS Dur : 090 ms QT Int : 348 ms P-R-T Axes : 046 -06 074 degrees QTc Int : 428 ms Sinus rhythm with Premature supraventricular complexes Nonspecific T wave abnormality Abnormal ECG Confirmed by WILDER CERON ([id number]), scientific publications editor ETHAN FRIEDMAN ([id number]) on 12/09/2019 2:37:45 PM Referred By: Confirmed By:WILDER CERON
--- NOTE | 2019-12-11 07:07 | PQF ---
MAURICE ESCOBAR MOEZ [id number] [facility] [id number] CLINICAL DOCUMENTATION CLARIFICATION FORM: POST DISCHARGE Addendum to original discharge summary date: ____ Late entry note date: __ DATE: 12/11/2019 ATTN:Lizzette Randall Please exercise your independent, professional judgment in responding to the clarification form. Clinical indicators are provided on the bottom of this form for your review. Can you please specify the diagnosis occasioning inpatient admission? Please check appropriate box(s): [ > ] Non-Q wave myocardial infarction Please specify etiology: [ >] Demand ischemia [ ] CAD [ ] Long QT sydrome [ ] GI bleed Please specify etiology: [ ] Adverse effect of Lovenox [ ] Etiology unknown [ ] Other diagnosis [ ] Unable to determine For continuity of documentation, please document condition throughout progress notes and discharge summary. Thank You. CLINICAL INDICATORS - SIGNS / SYMPTOMS / LABS HP 12/01 "cc:chest pain and SOB" HP 12/01 "Acute chest pain ruled out ACS" HP 12/01 "Elevated/indeterminate troponin" Consult 12/06 "non q-wave myocardial infarction" PN 12/05 "he also had a recent non q-wve DC likely from demand ischemia" Event note 12/01 "patient has black stool" Consult 12/01 "he was given a dose of therapeutic lovenox" Consult 12/01 "overnight he developed melena with a couple of large black bowel movement" Labs Troponin: 11/30=0.053 12/01=0.039 12/02=16.33 RISK FACTORS 68 years old-HP 12/01 CAD-HP 12/01 HTN-HP 12/01 Acute blood loss anemia-Consult 12/01 Hx of peptic ulcer-Consult 12/01 Gastritis-OP Note 12/01 Cardiac arrest-PN 12/06 Mitral regurgitation-PN 12/06 CKD stage 3-PN 12/05 TREATMENTS: Electrocardiogram-Collected 11/30 Serial troponin-HP 12/01 Hold Aspirin and Lovenox-Event note 12/01 IVF-Event note 12/01 EGD-OP Note 12/01 Blood transfusion-PN 12/06 Cardioversion-OP Note 12/05 Coronary angiogram-lab rn 12/03 Epinephrine 250ml IV-MAR 12/02 (This form is maintained as a part of the permanent medical record) 2014 [employer], [employer]. All Rights Reserved [email or web address] [phone] MTDD
== END 2019-12-08 00:52 | disposition short-term general hospital (02) | DRG 280 ==
LOC: ERS 22:22 → 2NO 12-02 00:25 → IMCU/EMU 12-02 11:59 → CCU 12-03 05:04 → OBSVTOIN 12-04 09:55 → IMCU/EMU 12-07 18:22
PROVIDERS: ADMIT Internal Medicine; ATTEND Internal Medicine
PROC: 0DJ08ZZ Inspection of Upper Intestinal Tract, Via Natural or Artificial Opening Endoscopic (ICD-10-PCS; principal; 2019-12-02)
PROC: 5A12012 Performance of Cardiac Output, Single, Manual (ICD-10-PCS; 2019-12-03)
PROC: B2111ZZ Fluoroscopy of Multiple Coronary Arteries using Low Osmolar Contrast (ICD-10-PCS; 2019-12-03)
PROC: B2151ZZ Fluoroscopy of Left Heart using Low Osmolar Contrast (ICD-10-PCS; 2019-12-03)
PROC: 4A033BC Measurement of Arterial Pressure, Coronary, Percutaneous Approach (ICD-10-PCS; 2019-12-03)
PROC: 3E033XZ Introduction of Vasopressor into Peripheral Vein, Percutaneous Approach (ICD-10-PCS; 2019-12-03)
PROC: 30233N1 Transfusion of Nonautologous Red Blood Cells into Peripheral Vein, Percutaneous Approach (ICD-10-PCS; 2019-12-03)
PROC: 5A09457 Assistance with Respiratory Ventilation, 24-96 Consecutive Hours, Continuous Positive Airway Pressure (ICD-10-PCS; 2019-12-05)
PROC: 5A2204Z Restoration of Cardiac Rhythm, Single (ICD-10-PCS; 2019-12-05)
DX: I21.A1 Myocardial infarction type 2 (principal); I46.9 Cardiac arrest, cause unspecified; J96.01 Acute respiratory failure with hypoxia; K92.1 Melena; D62 Acute posthemorrhagic anemia; N17.9 Acute kidney failure, unspecified; R57.9 Shock, unspecified; I48.92 Unspecified atrial flutter; I25.10 Atherosclerotic heart disease of native coronary artery without angina pectoris; I73.9 Peripheral vascular disease, unspecified; E78.5 Hyperlipidemia, unspecified; K29.70 Gastritis, unspecified, without bleeding; I48.91 Unspecified atrial fibrillation; I45.81 Long QT syndrome; E87.6 Hypokalemia; I12.9 Hypertensive chronic kidney disease with stage 1 through stage 4 chronic kidney disease, or unspecified chronic kidney disease; N18.9 Chronic kidney disease, unspecified; I34.0 Nonrheumatic mitral (valve) insufficiency; E87.70 Fluid overload, unspecified; Z95.5 Presence of coronary angioplasty implant and graft; Z89.432 Acquired absence of left foot; Z87.891 Personal history of nicotine dependence; Z88.8 Allergy status to other drugs, medicaments and biological substances; Z87.11 Personal history of peptic ulcer disease
CPT/HCPCS: 36415; 36416; 36430; 70450; 71045; 76770; 76942; 80048; 80053; 82140; 82274; 82553; 82805; 83735; 84484; 85007; 85014; 85018; 85025; 85027; 85610; 86850; 86900; 86901; 92950; 93005; 93010; 93306; 93454; 94660; 94760; 96372; 96374; 96375; C9113; G0378; J0153; J0282; J0295; J0583; J1160; J1642; J1644; J1650; J1940; J2001; J2270; J2310; J2704; J3475; J3480; J3490; J7050; J7070; P9016; Q9967

== ENCOUNTER 2022-06-21 17:33 | Inpatient (IN) | payer MEDICARE, OTHER ==
[2022-06-21 18:09] LABS: #Monocytes 0.5 thou/uL (0.11-0.59); #Neutrophils 2.5 thou/uL (1.40-6.50); %Basophils 0.9 % (0.0-1.0); %Eosinophils 0.9 % (0.0-10.0); %Lymphocytes 39.8 % (21.0-51.0); %Monocytes 10.1 % (0.0-10.0); %Neutrophils 48.2 % (42.0-75.0); Hemoglobin 8.7 g/dL (14.0-18.0); Mean Corpuscular Hemoglobin 33.1 pg (27.0-31.0); Mean Corpuscular Volume 97.1 fl (78.0-98.0); Mean Platelet Volume 8.5 fL (7.4-10.4); Platelet Count 158 10x3/uL (130-400); RBC Distribution Width 14.1 % (11.5-14.5); Red Blood Cell (RBC) Count 2.63 mill/uL (4.70-6.10); White Blood Cell (WBC) Count 5.1 10x3/uL (4.8-10.8)
[2022-06-21 18:29] LABS: ALT (SGPT) 9 U/L (8-55); AST (SGOT) 23 U/L (5-34); Albumin 4.2 g/dL (3.4-4.8); Alkaline Phosphatase 47 U/L (40-110); Anion Gap 16 mmol/L (10-20); BUN (Urea Nitrogen) 28 mg/dL (8.4-25.7); Bilirubin, Total 0.5 mg/dL (0.2-1.2); Calc. Creatinine Clearance 0 mL/min (70-130); Calcium 8.8 mg/dL (7.8-10.44); Carbon Dioxide 24 mmol/L (23-31); Chloride 105 mmol/L (98-107); Estimated GFR 53; Globulin 2.4 g/dL (2.4-3.5); Glucose 95 mg/dL (80-115); Potassium 3.9 mmol/L (3.5-5.1); Protein, Total 6.6 g/dL (5.8-8.1); Sodium 141 mmol/L (136-145)
[2022-06-21 18:53] LABS: CKMB 3.6 ng/mL (0-6.6)
[2022-06-21] MEDS ORDERED: Acetaminophen 325 MG TAB PO PRN (20:33)
[2022-06-21] MEDS ORDERED: Acetaminophen 650 MG Suppository PR PRN (20:33)
[2022-06-21] MEDS ORDERED: Ondansetron ODT 4 MG TAB PO PRN (20:33)
[2022-06-21] MEDS ORDERED: Nitroglycerin 0.4 MG TAB (25 Tab Bottle) SL PRN (20:33)
[2022-06-21] MEDS ORDERED: Ondansetron PF 4 MG/2 ML Vial IVP PRN (20:33)
[2022-06-21 21:20] VITALS: BMI 26.6
[2022-06-21 22:02] LABS: Troponin I 0.028 ng/mL (< 0.028)
[2022-06-22 00:47] LABS: Iron Binding Capacity, Total 269 mcg/dL (261-462)
[2022-06-22 00:48] LABS: Iron 142 ug/dL (65-175)
[2022-06-22 00:53] LABS: Troponin I 0.027 ng/mL (< 0.028)
[2022-06-22] MEDS: Furosemide 20 MG/2 ML VIAL SLOW IVP SCH ×2 (05:25→15:24)
[2022-06-22 05:38] LABS: Anion Gap 11 mmol/L (10-20); BUN (Urea Nitrogen) 27 mg/dL (8.4-25.7); Calc. Creatinine Clearance 76 mL/min (70-130); Calcium 8.9 mg/dL (7.8-10.44); Carbon Dioxide 26 mmol/L (23-31); Chloride 107 mmol/L (98-107); Estimated GFR 64; Glucose 100 mg/dL (80-115); Potassium 3.5 mmol/L (3.5-5.1); Sodium 140 mmol/L (136-145)
[2022-06-22 05:54] LABS: #Eosinphils 0.1 thou/uL (0.0-0.7); #Lymphocytes 1.8 thou/uL (1.20-3.40); #Monocytes 0.5 thou/uL (0.11-0.59); #Neutrophils 1.7 thou/uL (1.40-6.50); %Basophils 0.9 % (0.0-1.0); %Eosinophils 2.5 % (0.0-10.0); %Lymphocytes 43.5 % (21.0-51.0); %Monocytes 12.2 % (0.0-10.0); %Neutrophils 40.9 % (42.0-75.0); Hemoglobin 7.7 g/dL (14.0-18.0); Mean Corpuscular HGB CONC 34.9 g/dL (32.0-36.0); Mean Corpuscular Volume 97.4 fl (78.0-98.0); Mean Platelet Volume 8.6 fL (7.4-10.4); Platelet Count 157 10x3/uL (130-400); RBC Distribution Width 14.6 % (11.5-14.5); Red Blood Cell (RBC) Count 2.26 mill/uL (4.70-6.10); White Blood Cell (WBC) Count 4.2 10x3/uL (4.8-10.8)
[2022-06-22] MEDS: Gabapentin 400 MG CAP PO SCH ×4 (08:40→21:23)
[2022-06-22] MEDS: Clopidogrel Bisulfate 75 MG TAB PO SCH (08:40)
[2022-06-22] MEDS: Enoxaparin Sodium 40 MG/0.4 ML SYRINGE SC SCH (08:41)
[2022-06-22] MEDS: Aspirin 81 mg Enteric Coated Tablet PO SCH (08:41)
[2022-06-22] MEDS ORDERED: Clopidogrel Bisulfate 75 MG TAB PO SCH (09:00)
[2022-06-22] MEDS ORDERED: Tadalafil 5 MG Tablet PO SCH (09:00)
[2022-06-22] MEDS ORDERED: Aspirin Chewable 81 MG TAB PO SCH (09:00)
[2022-06-22 15:17] LABS: Hemoglobin 8.5 g/dL (14.0-18.0); Platelet Count 163 10x3/uL (130-400)
[2022-06-22] MEDS: Gemfibrozil 600 MG TAB PO SCH (15:24)
[2022-06-22] MEDS ORDERED: Pantoprazole 40 MG VIAL IVP SCH (15:30)
[2022-06-22] MEDS: HYDROcodone/Acetaminophen 5/325 mg Tablet PO PRN (18:10)
[2022-06-22] MEDS: Sertraline 25 MG TAB PO SCH (21:15)
[2022-06-22] MEDS: Pantoprazole 40 MG VIAL IVP SCH (21:23)
[2022-06-23] MEDS: HYDROcodone/Acetaminophen 5/325 mg Tablet PO PRN ×4 (00:06→20:50)
[2022-06-23] MEDS: Furosemide 20 MG/2 ML VIAL SLOW IVP SCH ×2 (06:00→13:12)
[2022-06-23 08:45] LABS: Hemoglobin 8.5 g/dL (14.0-18.0); Mean Corpuscular HGB CONC 35.3 g/dL (32.0-36.0); Mean Corpuscular Hemoglobin 34.2 pg (27.0-31.0); Mean Corpuscular Volume 96.9 fl (78.0-98.0); Mean Platelet Volume 7.9 fL (7.4-10.4); Platelet Count 179 10x3/uL (130-400); RBC Distribution Width 15.1 % (11.5-14.5); White Blood Cell (WBC) Count 5.3 10x3/uL (4.8-10.8)
[2022-06-23] MEDS: Clopidogrel Bisulfate 75 MG TAB PO SCH (09:25)
[2022-06-23] MEDS: Gemfibrozil 600 MG TAB PO SCH ×2 (09:25→16:26)
[2022-06-23] MEDS: Aspirin 81 mg Enteric Coated Tablet PO SCH (09:25)
[2022-06-23] MEDS: Gabapentin 400 MG CAP PO SCH ×4 (09:25→22:59)
[2022-06-23] MEDS: Enoxaparin Sodium 40 MG/0.4 ML SYRINGE SC SCH ×2 (09:25→09:29)
[2022-06-23] MEDS: Pantoprazole 40 MG VIAL IVP SCH ×2 (09:26→20:38)
[2022-06-23 12:13] LABS: Band 5 % (5-11); Lymphocytes 40 % (21-51); MDiff Complete? YES; Monocytes 9 % (0-10); Myelocyte 1 % (0-0); Neutrophil 44 % (42-75); Platelet Morphology Comment Appears Adequate; Polychromasia MODERATE = 3-4 cells (100X) (0-2/hpf); Stomatocytes SLIGHT = 2-5 cells (100X) (0-1/hpf)
[2022-06-23] MEDS ORDERED: GoLYTELY 4,000 ml Bottle PO SCH (17:45)
[2022-06-23] MEDS: Sertraline 25 MG TAB PO SCH (22:59)
[2022-06-24 08:31] LABS: #Eosinphils 0.1 thou/uL (0.0-0.7); #Monocytes 0.6 thou/uL (0.11-0.59); #Neutrophils 2.1 thou/uL (1.40-6.50); %Basophils 0.7 % (0.0-1.0); %Eosinophils 1.1 % (0.0-10.0); %Lymphocytes 42.2 % (21.0-51.0); %Monocytes 12.2 % (0.0-10.0); %Neutrophils 43.9 % (42.0-75.0); Hemoglobin 10.1 g/dL (14.0-18.0); Mean Corpuscular HGB CONC 33.6 g/dL (32.0-36.0); Mean Corpuscular Hemoglobin 32.9 pg (27.0-31.0); Mean Platelet Volume 7.9 fL (7.4-10.4); Platelet Count 192 10x3/uL (130-400); RBC Distribution Width 16.4 % (11.5-14.5); Red Blood Cell (RBC) Count 3.08 mill/uL (4.70-6.10); White Blood Cell (WBC) Count 4.7 10x3/uL (4.8-10.8)
[2022-06-24] MEDS: HYDROcodone/Acetaminophen 5/325 mg Tablet PO PRN (10:33)
[2022-06-24] MEDS: Gemfibrozil 600 MG TAB PO SCH ×2 (10:35→15:37)
[2022-06-24] MEDS: Furosemide 20 MG/2 ML VIAL SLOW IVP SCH ×2 (10:36→15:37)
[2022-06-24] MEDS: Gabapentin 400 MG CAP PO SCH ×3 (10:36→15:37)
[2022-06-24] MEDS: Pantoprazole 40 MG VIAL IVP SCH (10:36)
[2022-06-24 11:44] VITALS: TEMP 98.4
[2022-06-24] MEDS ORDERED: PROPOFOL 200 MG/20 ML VIAL ONE (14:16)
[2022-06-24] MEDS ORDERED: PHENYLEPHRINE-NS 100 MCG/ML 10 ML SYRINGE ONE (14:16)
[2022-06-24] MEDS ORDERED: Lidocaine 1% PF 5 ML VIAL ONE (14:16)
[2022-06-24 15:26] VITALS: BP 115/58
== END 2022-06-24 17:38 | disposition home or self-care (01) | DRG 811 ==
LOC: ERS 17:33 → 2SW 19:30 → OBSVTOIN 06-24 08:48
PROVIDERS: ADMIT Student in an Organized Health Care Education/Training Program; ATTEND Internal Medicine
PROC: 0DJ08ZZ Inspection of Upper Intestinal Tract, Via Natural or Artificial Opening Endoscopic (ICD-10-PCS; principal; 2022-06-24)
PROC: 0DJD8ZZ Inspection of Lower Intestinal Tract, Via Natural or Artificial Opening Endoscopic (ICD-10-PCS; 2022-06-24)
DX: D64.9 Anemia, unspecified (principal); I50.33 Acute on chronic diastolic (congestive) heart failure; I13.0 Hypertensive heart and chronic kidney disease with heart failure and stage 1 through stage 4 chronic kidney disease, or unspecified chronic kidney disease; I25.10 Atherosclerotic heart disease of native coronary artery without angina pectoris; I25.5 Ischemic cardiomyopathy; E03.9 Hypothyroidism, unspecified; E78.1 Pure hyperglyceridemia; N18.9 Chronic kidney disease, unspecified; Z88.8 Allergy status to other drugs, medicaments and biological substances; Z79.899 Other long term (current) drug therapy
CPT/HCPCS: 36415; 36430; 71045; 80048; 80053; 82274; 82553; 82728; 83540; 83550; 83880; 84484; 85025; 86850; 86900; 86901; 93005; 94760; 96372; 96374; 96375; 96376; C9113; G0378; J1650; J1940; J2704; P9016; U0003; U0005

== ENCOUNTER 2022-10-21 10:41 | Outpatient (CLI) | payer MEDICARE, OTHER | END 2022-10-21 10:42 | disposition home or self-care (01) | LOC: BICULT 10:41 | PROVIDERS: ATTEND Internal Medicine Nephrology | DX: N18.30 Chronic kidney disease, stage 3 unspecified (principal) | CPT/HCPCS: 76770; 93975 ==